=== PATIENT | female | born 1985 | race African-American/Black ===

== ENCOUNTER 2019-02-15 07:00 | Inpatient (IN) | payer OTHER ==
[2019-02-15 08:01] VITALS: BMI 40.6
[2019-02-15] MEDS ORDERED: CITRIC ACID/SODIUM CITRATE 30 ML UNIT-DOSE CUP PO ONE (08:41)
--- NOTE | 2019-02-15 08:41 | HP ---
Past Medical History - Primary Care Physician PCP:: Ramya Mendoza - Admission Chief Complaint: 33yo P2 @ 39.2wks, prior c/section x 2, for repeat c/section. She has no complains, no VB, no LOF, no ctx, + FM History of Present Illness: 1. Hyperemesis - improved without meds 2. 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 Weeks Gestation by Dates: 39.2 ...EDC by Dates: 02/20/19 ...EDC by Sono: 02/20/19 - Past Surgical History Past Surgical History: Yes: (x2) Hx Myomectomy: No Hx Transabdominal Cerclage: No Additional Surgical History: 10/23/16 - Abdominoplasty, liposuction, butt lift - Smoking History Smoking history: Never smoked Have you smoked in the past 12 months: No - Alcohol/Substance Use Hx Alcohol Use: No Home Medications - Allergies Allergies/Adverse Reactions: Allergies Allergy/AdvReac Type Severity Reaction Status Date / Time No Known Allergies Allergy Verified 02/15/19 07:49 - Home Medications Home Medications: Ambulatory Orders Vitamins (Sjr) - 1 tab PO DAILY 02/15/19 Family Disease History - Family Disease History Family Disease History: Other: Mother (Lupus) Review of Systems - Review of Systems Constitutional: reports: No Symptoms Eyes: reports: No Symptoms HENT: reports: No Symptoms Neck: reports: No Symptoms Cardiovascular: reports: No Symptoms Respiratory: reports: No Symptoms Gastrointestinal: reports: No Symptoms Genitourinary: reports: No Symptoms Breasts: reports: No Symptoms Reported Musculoskeletal: reports: No Symptoms Integumentary: reports: No Symptoms Neurological: reports: No Symptoms Endocrine: reports: No Symptoms Hematology/Lymphatic: reports: No Symptoms Psychiatric: reports: No Symptoms Pain Intensity: 0 Physical Exam - Maternity Vital Signs: Vital Signs Temperature 98.1 F 02/15/19 07:20 Pulse Rate 104 H 02/15/19 07:20 Respiratory Rate 20 02/15/19 07:20 Blood Pressure 117/78 02/15/19 07:20 O2 Sat by Pulse Oximetry (%) Constitutional: Yes: Well Nourished, No Distress, Calm Eyes: Yes: WNL, Conjunctiva Clear HENT: Yes: WNL, Atraumatic, Normocephalic Neck: Yes: WNL, Supple, Trachea Midline Cardiovascular: Yes: WNL, Regular Rate and Rhythm Lungs: Clear to auscultation Breast(s): Yes: WNL - Abdominal Exam/OB Fundal Height: 36 Number of Fetuses: Single Presentation: Vertex Contractions: No Monitor Mode: External Heart Rate (range): 140 Heart Rate Location: Midline Category: I Accelerations: Uniform Decelerations: None - Vaginal Exam/OB Vaginal Bleediing: No Speculum Exam: No Dilatation (cm): deferr Amniotic Membrane Status: Intact Presentation: Vertex/Position - Physical Exam Musculoskeletal: Yes: WNL Extremities: Yes: WNL Edema: Yes Edema: LUE: 1+, LLE: 1+ Integumentary: Yes: WNL Deep Tendon Reflex Grade: Normal +2 ...Motor Strength: WNL Psychiatric: Yes: WNL, Alert, Oriented - Labs Lab Results: Opos/NR/RI/HIV neg/HepB neg/GCT 106 Assessment/Plan 33yo P2 with at EGA 39 3/7wks admitted for repeat C/S. We discussed the risks and benefits of C/S at length, including but not limited to scarring, pain, bleeding, infection, injury to underlying organs and structures, need for additional surgery to repair/treat any problems or complications, complications/injuries, etc. The pt verbalized her understanding and requested to proceed with surgery. The pt is aware that all surgeries have risks and no guarantees can be provided.
[2019-02-15] MEDS ORDERED: ELECTROLYTE-148 SOLN 1,000 ML IV SCH (08:45)
[2019-02-15] MEDS ORDERED: CEFAZOLIN 2 GM/D5W 2 GM/50 ML ML IVPB ONE (09:00)
[2019-02-15] MEDS ORDERED: ceFAZolin 2 GRAM PREMIX BAG IVPB ONE (09:00)
[2019-02-15] MEDS ORDERED: morphine SULFATE/PF 0.5 MG/ML (2cc Syringe - QUVA) ONE (10:04)
[2019-02-15] MEDS ORDERED: ePHEDrine SULFATE 50 MG/1 ML AMPULE ONE (10:17)
[2019-02-15] MEDS ORDERED: OXYTOCIN 20 UNITS in 0.9% NS 20 UNIT/1,000 ML INFUS.BAG IV ONE ×2 (10:36→11:29)
[2019-02-15] MEDS ORDERED: ONDANSETRON 4 MG/2 ML VIAL IVPUSH PRN (11:59)
[2019-02-15] MEDS ORDERED: morphine SULFATE/PF 0.5 MG/ML (2cc Syringe - QUVA) EP ONE (11:59)
--- NOTE | 2019-02-15 12:00 | OP ---
Operative Note - Note: Operative Date: 02/15/19 Pre-Operative Diagnosis: 33yo P2 with prior c/section x 2 for repeat c/section Operation: Repeat c/section Findings: Uterus scared to right anterior abdominal wall Anterior low placenta at the level of uterine incision Post-Operative Diagnosis: Same as Pre-op Surgeon: Ramya Mendoza Special Ed Assistant: Jose Pina Anesthesiologist/GUIDE DOG MOBILITY INSTRUCTOR: Cindy Howard MD Anesthesia: Spinal Specimens Removed: Placenta Estimated Blood Loss (mls): 500 Drains, Volume Out (mls): 150 Fluid Volume Replaced (mls): 1,700 Operative Report Dictated: Yes
--- NOTE | 2019-02-15 12:06 | PN ---
Delivery - Delivery Section: Repeat Type of Anesthesia: Spinal Episiotomy/Laceration: None EBL (cc): 500 Delivery, Single - Stages of Labor Date of Delivery: 02/15/19 Time of Delivery: 10:41 Date Placenta Delivered: 02/15/19 Time Placenta Delivered: :42 Placenta: Yes: Expressed - Condition of Infant Clay Dry Press Mixer Operator/Training Development Specialist Present: Yes Name: Saba Marcus Gender: Female Weight: 6 lb 2 oz Total Hours ROM (Hrs/Mins): 0hrs 2min - 1 Minute Total Score: 9 5 Minutes Total Score: 9 - Sabine Feeding Plan Initial Plan: Exclusive throughout hospitalization Benefits of Exclusively reinforced: Yes Remarks - Remarks Remarks: cord around both ankles Placenta at the level of uterine incision, anterior, low lying head delivered atraumatically
[2019-02-15] MEDS ORDERED: METHYLERGONOVINE MALEATE 0.2 MG/1 ML AMP IM PRN (12:07)
[2019-02-15] MEDS ORDERED: IBUPROFEN 800 MG/8 ML IJ IVPB PRN (12:35)
[2019-02-15] MEDS ORDERED: IBUPROFEN 800 MG/8 ML IJ IVPB ONE (12:39)
[2019-02-15] MEDS ORDERED: IBUPROFEN 800 MG/8 ML IJ IVPB SCH ×2 (12:45→17:17)
[2019-02-15] MEDS: IBUPROFEN 800 MG/8 ML IJ IVPB SCH (19:46)
[2019-02-16] MEDS: CEFAZOLIN 1 GM/D5W 1 GM/50 ML BAG IVPB SCH ×3 (01:27→17:01)
[2019-02-16] MEDS: IBUPROFEN 800 MG/8 ML IJ IVPB SCH (03:37)
[2019-02-16 07:40] LABS: BASO % 0.1 % (0-2.0); EOS % 0.6 % (0-4.5); HEMATOCRIT 29.1 % (32.4-45.2); HEMOGLOBIN 9.4 GM/dL (10.7-15.3); LYMPH % 8.6 % (8-40); MCH 27.5 pg (25.7-33.7); MCHC 32.3 g/dl (32.0-36.0); MEAN CELL VOLUME 85.3 fl (80-96); MEAN PLT VOLUME 8.3 fl (7.5-11.1); MONO % 13.8 % (3.8-10.2); NEUT % 76.9 % (42.8-82.8); PLATELET COUNT 193 K/MM3 (134-434); RBC 3.41 M/mm3 (3.60-5.2); RDW 14.9 % (11.6-15.6); WHITE BLOOD COUNT 12.5 K/mm3 (4.0-10.0)
[2019-02-16] MEDS: ENOXAPARIN NA (PORCINE) 40 MG/0.4 ML DISP.SYRIN SQ SCH (09:05)
[2019-02-16] MEDS: PRENATAL VITAMINS W/ FOLIC ACID TABLET (FP) PO SCH (09:05)
--- NOTE | 2019-02-16 09:25 | PN ---
HC Provider Note Provider Note: Anesthesia Post op Pt s/p spinal for c/section Pt awake alert sitting up Pt tolerating po's w/o n/v Ambulating well, no urinary retention denies h/a, no back pain reports some itching that did not require medication VSS no apparent anesthesia complications Johnson Corona.
[2019-02-16] MEDS: oxyCODONE HCL 5 MG TABLET PO PRN (10:48)
[2019-02-16] MEDS: ACETAMINOPHEN 325 MG TABLET (FP) PO PRN ×3 (10:49→21:15)
[2019-02-16] MEDS: SIMETHICONE 80 MG TAB.CHEW (FP) PO PRN ×3 (10:52→21:14)
[2019-02-16] MEDS ORDERED: BISACODYL 10 MG SUPP.RECT RC PRN (12:09)
[2019-02-16] MEDS: IBUPROFEN 600 MG TABLET (FP) PO PRN ×2 (15:32→21:14)
--- NOTE | 2019-02-16 16:41 | PN ---
Post Progress Note - Subjective Subjective: Patient without acute complaints. Reports tolerating oral intake without nausea or vomiting. Ambulating without dizziness. Denies fevers or chills. Pain well controlled with oral pain medication. Pumping/breast feeding without issue. Passing flatus, no BM. Type of Delivery: Repeat C/S Vital Signs: Vital Signs Temperature 98 F 02/16/19 07:30 Pulse Rate 93 H 02/16/19 07:30 Respiratory Rate 18 02/16/19 12:00 Blood Pressure 129/76 02/16/19 07:30 O2 Sat by Pulse Oximetry (%) 99 02/15/19 12:45 Breast Exam: Yes: Soft Uterus: Yes: Fundus Firm, Fundus below umbilicus Incision: Yes: Dressing dry and intact Abdomen/GI: Yes: Abdomen soft, Tolerating PO Lochia: Yes: Rubra Lochia, amount: Small Extremities: Yes: Calves non-tender Perineum: Yes: Intact Activity: Ambulating - Labs Labs: CBC WBC 12.5 K/mm3 (4.0-10.0) H 02/16/19 05:30 RBC 3.41 M/mm3 (3.60-5.2) L 02/16/19 05:30 Hgb 9.4 GM/dL (10.7-15.3) L 02/16/19 05:30 Hct 29.1 % (32.4-45.2) L 02/16/19 05:30 MCV 85.3 fl (80-96) 02/16/19 05:30 MCH 27.5 pg (25.7-33.7) 02/16/19 05:30 MCHC 32.3 g/dl (32.0-36.0) 02/16/19 05:30 RDW 14.9 % (11.6-15.6) 02/16/19 05:30 Plt Count 193 K/MM3 (134-434) 02/16/19 05:30 MPV 8.3 fl (7.5-11.1) 02/16/19 05:30 Absolute Neuts (auto) 9.6 K/mm3 (1.5-8.0) H 02/16/19 05:30 Neutrophils % 76.9 % (42.8-82.8) 02/16/19 05:30 Lymphocytes % 8.6 % (8-40) D 02/16/19 05:30 Monocytes % 13.8 % (3.8-10.2) H 02/16/19 05:30 Eosinophils % 0.6 % (0-4.5) 02/16/19 05:30 Basophils % 0.1 % (0-2.0) 02/16/19 05:30 Nucleated RBC % 0 % (0-0) 02/16/19 05:30 Assessment/Plan 26yo P1 s/p primary LT C/S, doing well stable, afebrile. care instructions reviewed. Continue routine postop care. Ambulation encouraged.
[2019-02-17] MEDS: IBUPROFEN 600 MG TABLET (FP) PO PRN ×3 (09:32→20:22)
[2019-02-17] MEDS: SIMETHICONE 80 MG TAB.CHEW (FP) PO PRN ×3 (09:32→20:22)
[2019-02-17] MEDS: ENOXAPARIN NA (PORCINE) 40 MG/0.4 ML DISP.SYRIN SQ SCH (09:32)
[2019-02-17] MEDS: PRENATAL VITAMINS W/ FOLIC ACID TABLET (FP) PO SCH (09:32)
[2019-02-17] MEDS: ACETAMINOPHEN 325 MG TABLET (FP) PO PRN (09:32)
[2019-02-17] MEDS: oxyCODONE HCL 5 MG TABLET PO PRN ×2 (12:34→20:23)
--- NOTE | 2019-02-17 15:17 | PATH ---
Surgical Pathology Report Patient Name: FARIDA LUNA Med. Rec. 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 Specimen(s) Received PLACENTA Clinical History x2 Tummy tuck and Liposuction 2017 Final Diagnosis PLACENTA, SECTION: 476 G THIRD TRIMESTER PLACENTA WITH TRIVASCULAR UMBILICAL CORD AND UNREMARKABLE PLACENTAL MEMBRANES. Electronically Signed Lillie Oconnell M.D. Gross Description The specimen is received fresh labeled placenta and is a 476 gram, 20 x 20 x 1.5 cm. placenta with attached membranes and umbilical cord. The attached membranes are clear and translucent and insert marginally. The umbilical cord measures 5 cm. in length and averages 1.5 cm. in diameter. The cord inserts eccentrically, 5 cm. to the nearest margin. No true knots or strictures are identified. Cut surface of the umbilical cord reveals 3 vessels. The surface is luque-blue with minimal fibrin deposition and appropriate caliber vessels. The maternal surface is red-brown with focal defects. Sectioning reveals red-brown, spongy parenchyma. No lesions are identified. Notereader sections are submitted in three cassettes as follows: 1- membrane rolls and umbilical cord; 2-3- full thickness sections of placenta. MLSZ/02/16/2019 sanml/02/16/2019
--- NOTE | 2019-02-17 17:27 | PN ---
Post Progress Note - Subjective Subjective: Patient without acute complaints. Reports tolerating oral intake without nausea or vomiting. Ambulating without dizziness. Denies fevers or chills. Pain well controlled with oral pain medication. without difficulty. Passing flatus. Type of Delivery: Repeat C/S Vital Signs: Vital Signs Temperature 98.6 F 02/17/19 09:00 Pulse Rate 111 H 02/17/19 09:00 Respiratory Rate 18 02/17/19 09:00 Blood Pressure 118/66 02/17/19 09:00 O2 Sat by Pulse Oximetry (%) 99 02/15/19 12:45 Breast Exam: Yes: Soft Uterus: Yes: Fundus Firm, Fundus below umbilicus Incision: Yes: Sutures intact. No: Redness, Oozing Abdomen/GI: Yes: Abdomen soft, Tender (mild incisional), Passing flatus, Tolerating PO. No: Abdominal Distention Lochia: Yes: Rubra Lochia, amount: Moderate Extremities: Yes: Calves non-tender, Edema (+1) Activity: Ambulating - Labs Labs: CBC WBC 12.5 K/mm3 (4.0-10.0) H 02/16/19 05:30 RBC 3.41 M/mm3 (3.60-5.2) L 02/16/19 05:30 Hgb 9.4 GM/dL (10.7-15.3) L 02/16/19 05:30 Hct 29.1 % (32.4-45.2) L 02/16/19 05:30 MCV 85.3 fl (80-96) 02/16/19 05:30 MCH 27.5 pg (25.7-33.7) 02/16/19 05:30 MCHC 32.3 g/dl (32.0-36.0) 02/16/19 05:30 RDW 14.9 % (11.6-15.6) 02/16/19 05:30 Plt Count 193 K/MM3 (134-434) 02/16/19 05:30 MPV 8.3 fl (7.5-11.1) 02/16/19 05:30 Absolute Neuts (auto) 9.6 K/mm3 (1.5-8.0) H 02/16/19 05:30 Neutrophils % 76.9 % (42.8-82.8) 02/16/19 05:30 Lymphocytes % 8.6 % (8-40) D 02/16/19 05:30 Monocytes % 13.8 % (3.8-10.2) H 02/16/19 05:30 Eosinophils % 0.6 % (0-4.5) 02/16/19 05:30 Basophils % 0.1 % (0-2.0) 02/16/19 05:30 Nucleated RBC % 0 % (0-0) 02/16/19 05:30 Assessment/Plan 33 yo POD # 2 s/p R CD, afebrile, mild anemia 1. Continue routine postoperative care. 2. Mild tachycardia, mild anemia noted. Will monitor VS 2. Encourage ambulation and incentive spirometer use 3. Continue oral pain medication 4. Anticipate discharge home postoperative day #3 or #4
[2019-02-18] MEDS: FERROUS SO4 325 MG TABLET (FP) PO SCH ×2 (09:01→18:04)
[2019-02-18] MEDS: IBUPROFEN 600 MG TABLET (FP) PO PRN ×3 (09:01→21:38)
[2019-02-18] MEDS: SIMETHICONE 80 MG TAB.CHEW (FP) PO PRN ×2 (09:01→21:38)
[2019-02-18] MEDS: oxyCODONE HCL 5 MG TABLET PO PRN (09:01)
[2019-02-18] MEDS: PRENATAL VITAMINS W/ FOLIC ACID TABLET (FP) PO SCH (09:01)
[2019-02-18] MEDS: ENOXAPARIN NA (PORCINE) 40 MG/0.4 ML DISP.SYRIN SQ SCH (09:02)
[2019-02-18 09:39] LABS: BASO % 0.3 % (0-2.0); EOS % 2.2 % (0-4.5); HEMOGLOBIN 9.2 GM/dL (10.7-15.3); LYMPH % 15.7 % (8-40); MCH 27.9 pg (25.7-33.7); MCHC 32.9 g/dl (32.0-36.0); MEAN CELL VOLUME 84.9 fl (80-96); MEAN PLT VOLUME 8.4 fl (7.5-11.1); MONO % 13.5 % (3.8-10.2); NEUT % 68.3 % (42.8-82.8); PLATELET COUNT 204 K/MM3 (134-434); RDW 14.9 % (11.6-15.6); WHITE BLOOD COUNT 7.7 K/mm3 (4.0-10.0)
[2019-02-18] MEDS: ACETAMINOPHEN 325 MG TABLET (FP) PO PRN ×2 (13:17→21:39)
--- NOTE | 2019-02-18 22:37 | PN ---
Progress Note (short form) - Note Progress Note: pod 3 s/p repeat c/s . has low abdominal cramps, passing gas, voids ok CBC, BMP 02/18/19 08:50 Last Vital Signs Temp Pulse Resp BP Pulse Ox 97.9 F 87 18 135/88 99 02/18/19 09:00 02/18/19 09:00 02/18/19 09:00 02/18/19 09:00 02/15/19 12:45 abdomen soft, no distension, no cva incision dry, clean no calf tenderness plan ambulate . pain management.
[2019-02-18 23:40] VITALS: TEMP 98.4
[2019-02-19] MEDS: ACETAMINOPHEN 325 MG TABLET (FP) PO PRN (08:18)
[2019-02-19] MEDS: SIMETHICONE 80 MG TAB.CHEW (FP) PO PRN (08:19)
[2019-02-19] MEDS: IBUPROFEN 600 MG TABLET (FP) PO PRN (08:19)
[2019-02-19] MEDS: FERROUS SO4 325 MG TABLET (FP) PO SCH (08:19)
--- NOTE | 2019-02-19 08:28 | DS ---
Physical Exam-HOUSEKEEPING/LAUNDRY Vital Signs: Vital Signs Temperature 98.4 F 02/18/19 22:00 Pulse Rate 71 02/18/19 22:00 Respiratory Rate 18 02/18/19 22:00 Blood Pressure 130/78 02/18/19 22:00 O2 Sat by Pulse Oximetry (%) 99 02/15/19 12:45 Constitutional: Yes: Well Nourished, No Distress, Calm Eyes: Yes: WNL, Conjunctiva Clear, EOM Intact HENT: Yes: WNL, Atraumatic, Normocephalic Neck: Yes: WNL, Supple, Trachea Midline Cardiovascular: Yes: WNL, Regular Rate and Rhythm Respiratory: Yes: WNL, Regular, CTA Bilaterally Gastrointestinal: Yes: WNL ...Rectal Exam: Yes: WNL Renal/: Yes: WNL ....Post : Yes: Uterus firm, Uterus non-tender, Slight lochia rubra Breast(s): Yes: WNL Musculoskeletal: Yes: WNL Extremities: Yes: WNL Edema: LLE: Trace, RLE: Trace Integumentary: Yes: WNL Wound/Incision: Yes: Clean/Dry, Well Approximated, Sutures Intact Neurological: Yes: WNL, Alert, Oriented ...Motor Strength: WNL Psychiatric: Yes: WNL, Alert, Oriented Labs: CBC, BMP 02/18/19 08:50 Delivery - Delivery Section: Repeat Type of Anesthesia: Spinal Episiotomy/Laceration: None EBL (cc): 500 Delivery, Single - Stages of Labor Date of Delivery: 02/15/19 Time of Delivery: 10:41 Time Placenta Delivered: 10:42 Placenta: Yes: Expressed - Condition of Maple Products Maker/Temperature Control Inspector Present: Yes Name: Saba Marcus Gender: Female Weight: 6 lb 2 oz Total Hours ROM (Hrs/Mins): 0hrs 2min - 1 Minute Total Score: 9 5 Minutes Total Score: 9 - Feeding Plan Initial Plan: Exclusive throughout hospitalization Benefits of Exclusively reinforced: Yes Discharge Summary Reason For Visit: C SECTION Procedures: Principal: repeat LST c/s Hospital Course: no complication Condition: Good - Instructions Diet, Activity, Other Instructions: regular diet, no intercourse , follow up office 1 week, if fever, pain, heavy vaginal bleeding call Referrals: Ramya Mendoza MD [Staff Physician] - Disposition: HOME - Home Medications Comprehensive Discharge Medication List: Ambulatory Orders Vitamins (Sjr) - 1 tab PO DAILY 02/15/19 Ibuprofen [Motrin -] 600 mg PO QID #28 tablet 02/18/19 Ibuprofen [Motrin -] 600 mg PO TID #90 tablet 02/18/19
[2019-02-19 09:40] VITALS: BP 129/63; PULSE 74
[2019-02-19] MEDS: PRENATAL VITAMINS W/ FOLIC ACID TABLET (FP) PO SCH (10:21)
[2019-02-19] MEDS: ENOXAPARIN NA (PORCINE) 40 MG/0.4 ML DISP.SYRIN SQ SCH (10:21)
--- NOTE | 2019-02-20 21:17 | OP ---
DATE OF OPERATION: 02/15/2019 PREOPERATIVE DIAGNOSIS: A 33-year-old, para 2, at 39 plus weeks, with history of prior section twice, presented for repeat section. FINDINGS: Uterus was hard at the right anterior abdominal wall, anterior low placenta at the level of uterine incision. POSTOPERATIVE DIAGNOSIS: A 33-year-old, para 2, at 39 plus weeks, with history of prior section twice, presented for repeat section. SURGEON: Ramya Mendoza MD MERCHANDISING ASSISTANT: Jose Pina MD ANESTHESIA: Cindy Howard MD: Spinal. DESCRIPTION OF THE OPERATIVE PROCEDURE: After ensuring informed consent, patient was brought to the operating room, where she was placed in dorsal supine position with left lateral tilt. Abdomen was prepped and draped in a sterile fashion. A Pfannenstiel skin incision was made 2 cm above pubic symphysis and extended to the level of fascia with Bovie cautery. Multiple sutures were encountered, likely from the prior abdominoplasty and needed to be removed upon entry. Fascia was incised in the midline and extended bilaterally with Bovie cautery. Muscle was split in the midline. The peritoneum was identified and immediately upon entry into the peritoneum, uterus was incised simultaneously with peritoneal incision, since abdominal wall was densely adherent to the anterior uterine wall. Placenta was visualized through the small cristian on the uterine incision. The peritoneum was dissected off the lower uterine segment. Bladder was brought down with [place], and uterine incision was further extended. Placenta was encountered right at the level of the incision. 's head was found to be inferior to the incision, was delivered atraumatically and cord was clamped and cut. Infant was handed to awaiting pediatricians. Placenta delivered intact without any difficulty. Uterus was cleated of clots and debris and repaired in 2 layers with 0 Biosyn. Excellent hemostasis was achieved. At that point, the uterus was found to be firm. Abdomen was cleared of clots and debris. Peritoneal incision was repaired, incorporating some of the muscle into the incision. The muscle was reapproximated as well. Fascia was repaired with 0 Vicryl. Skin was closed with subcuticular stitches with 2-0 Vicryl and subsequently with 4-0 V-Loc Biosyn. Patient tolerated procedure well. Sponge and instrument count was correct x2. Estimated blood loss was 500 mL. Urine drained was 150 mL. Patient received 1700 mL IV fluids and was brought stable to the recovery room. Marquis [id number]
== END 2019-02-19 14:00 | disposition home or self-care (01) | DRG 788 ==
LOC: JLDR 07:00 → J3W 13:00
PROVIDERS: ADMIT Obstetrics & Gynecology; ATTEND Obstetrics & Gynecology
PROC: 10D00Z1 Extraction of Products of Conception, Low, Open Approach (ICD-10-PCS; principal; 2019-02-15)
DX: O34.211 Maternal care for low transverse scar from previous cesarean delivery (principal); O69.89X0 Labor and delivery complicated by other cord complications, not applicable or unspecified; O99.02 Anemia complicating childbirth; D64.9 Anemia, unspecified; Z3A.39 39 weeks gestation of pregnancy; Z37.0 Single live birth
CPT/HCPCS: 36415; 36600; 82803; 85025; 88307-TC; 94010

== ENCOUNTER 2019-02-22 13:08 | Inpatient (IN) | payer OTHER ==
--- NOTE | 2019-02-22 13:12 | PDOC ---
Rapid Medical Evaluation Medical Evaluation: Allergies Allergy/AdvReac Type Severity Reaction Status Date / Time No Known Allergies Allergy Verified 02/15/19 07:49 I have performed a brief in-person evaluation of this patient. The patient presents with a chief complaint of: s/p last week; saw OB , Dr. Marsh today for site check and was noted for elevated BP; was sent to ED for eval for possible pre-eclampsia; has mild MAC; denies vomiting, blurred vision, cp; denies hx of HTN Pertinent physical exam findings: In NAD I have ordered the following: Labs The patient will proceed to the ED for further evaluation. 02/22/19 13:10
[2019-02-22] MEDS ORDERED: LABETALOL HCL 5 MG/1 ML (100MG/20 ML VIAL) IVPUSH ONE (13:57)
[2019-02-22] MEDS ORDERED: MAGNESIUM 4GM/H20 - 4 GM/100 ML IVPB IVPB SCH (14:00)
[2019-02-22] MEDS ORDERED: MAGNESIUM SULF 50% (8.12 MEQ/2 ML-1 GM VIAL) ONE (14:01)
[2019-02-22 14:07] LABS: BASO % 0.4 % (0-2.0); EOS % 3.8 % (0-4.5); HEMATOCRIT 30.3 % (32.4-45.2); HEMOGLOBIN 9.9 GM/dL (10.7-15.3); LYMPH % 21.8 % (8-40); MCH 27.5 pg (25.7-33.7); MCHC 32.7 g/dl (32.0-36.0); MEAN CELL VOLUME 84.1 fl (80-96); MEAN PLT VOLUME 8.1 fl (7.5-11.1); MONO % 13.9 % (3.8-10.2); NEUT % 60.1 % (42.8-82.8); PLATELET COUNT 259 K/MM3 (134-434); RDW 14.4 % (11.6-15.6)
[2019-02-22] MEDS ORDERED: LABETALOL HCL 5 MG/1 ML (200MG/40ML VIAL) IVPB ONE (14:22)
[2019-02-22 14:24] LABS: EPI CELLS 9.9 /HPF (0-5/HPF); HYALINE CASTS 3 /lpf (0-8); URINE APPEARANCE CLOUDY; URINE BACTERIA 213.6 /hpf (NEGATIVE); URINE BILIRUBIN NEGATIVE (NEGATIVE); URINE COLOR YELLOW; URINE GLUCOSE (UA) NEGATIVE (NEGATIVE); URINE KETONE NEGATIVE (NEGATIVE); URINE LEUK ESTERASE TRACE (NEGATIVE); URINE NITRITE NEGATIVE (NEGATIVE); URINE PROTEIN 1+ (NEGATIVE); URINE RBC 5 /hpf (0-4); URINE UROBILINOGEN 0.2 mg/dL (0.2-1.0); URINE WBC 16 /hpf (0-5)
--- NOTE | 2019-02-22 14:36 | PDOC ---
History of Present Illness - General Chief Complaint: Blood Pressure Problem Stated Complaint: HTN Time Seen by Provider: 02/22/19 13:09 - History of Present Illness Initial Comments: 02/22/19 14:25 89F A3 s/p 7 days ago with h/o hyperproteinuria of , sent by OBGYN for post- hypertension, worried she might have preeclampsia. Patient reports that she hasn't been feeling well for the past 3 days with generalized swelling of the feet, legs arms and face. Wasn't treated for hyperproteinuria as her BP was perfectly normal Denies fever, chills, abdominal pain or vaginal discharge or dysuria. Past History - Past Medical History Allergies/Adverse Reactions: Allergies Allergy/AdvReac Type Severity Reaction Status Date / Time No Known Allergies Allergy Verified 02/22/19 13:34 Home Medications: Ambulatory Orders Vitamins (Sjr) - 1 tab PO DAILY 02/15/19 Ibuprofen [Motrin -] 600 mg PO QID #28 tablet 02/18/19 Ibuprofen [Motrin -] 600 mg PO TID #90 tablet 02/18/19 Asthma: No Cancer: No Cardiac Disorders: No COPD: No Diabetes: No HTN: No Seizures: No Thyroid Disease: No - Suicide/Smoking/Psychosocial Hx Smoking History: Never smoked Have you smoked in the past 12 months: No Information on smoking cessation initiated: No Hx Alcohol Use: No Drug/Substance Use Hx: No Hx Substance Use Treatment: No Review of Systems - Review of Systems Able to Perform ROS?: Yes Is the patient limited Greenlandic proficient: No Constitutional: No: Symptoms Reported HEENTM: No: Symptoms Reported Respiratory: No: Symptoms reported Cardiac (ROS): No: Symptoms Reported ABD/GI: No: Symptoms Reported : No: Symptoms Reported Musculoskeletal: No: Symptoms Reported Integumentary: No: Symptoms Reported Neurological: No: Symptoms reported All Other Systems: Reviewed and Negative *Physical Exam - Vital Signs Last Vital Signs Temp Pulse Resp BP Pulse Ox 98.4 F 69 16 163/97 98 02/22/19 14:10 02/22/19 14:10 02/22/19 14:10 02/22/19 14:10 02/22/19 14:10 - Physical Exam General Appearance: Yes: Nourished, Appropriately Dressed. No: Apparent Distress HEENT: positive: EOMI, ADRIAN, Normal ENT Inspection Respiratory/Chest: positive: Lungs Clear, Normal Breath Sounds. negative: Chest Tender, Respiratory Distress Cardiovascular: positive: Regular Rhythm, Regular Rate, S1, S2 Gastrointestinal/Abdominal: positive: Normal Bowel Sounds, Tender (mildly, over scar), Flat, Soft Musculoskeletal: positive: Normal Inspection. negative: CVA Tenderness Extremity: positive: Normal Capillary Refill, Normal Inspection, Normal Range of Motion, Other (anansarca) Integumentary: positive: Normal Color, Dry, Warm Neurologic: positive: Fully Oriented, Alert, Normal Mood/Affect, Normal Response , Motor Strength 10/10 ED Treatment Course - LABORATORY CBC & Chemistry Diagram: 02/22/19 13:08 02/22/19 13:08 - ADDITIONAL ORDERS Additional order review: Laboratory Results 02/22/19 02/22/19 13:08 13:08 WBC 7.0 RBC 3.60 Hgb 9.9 L Hct 30.3 L MCV 84.1 MCH 27.5 MCHC 32.7 RDW 14.4 Plt Count 259 D MPV 8.1 Absolute Neuts (auto) 4.2 Neutrophils % 60.1 Lymphocytes % 21.8 D Monocytes % 13.9 H Eosinophils % 3.8 Basophils % 0.4 Nucleated RBC % 0 Urine Color Yellow Urine Appearance Cloudy Urine pH 6.0 Ur Specific [place] 1.012 Urine Protein 1+ H Urine Glucose (UA) Negative Urine Ketones Negative Urine Blood 3+ H Urine Nitrite Negative Urine Bilirubin Negative Urine Urobilinogen 0.2 Ur Leukocyte Esterase Trace Urine WBC (Auto) 16 Urine RBC (Auto) 5 Urine Casts (Auto) 3 U Epithel Cells (Auto) 9.9 Urine Bacteria (Auto) 213.6 02/22/19 13:08 RBC 3.60 MCV 84.1 MCHC 32.7 RDW 14.4 MPV 8.1 Neutrophils % 60.1 Lymphocytes % 21.8 D Monocytes % 13.9 H Eosinophils % 3.8 Basophils % 0.4 - Medications Given in the ED: ED Medications Discontinued Medications Generic Name Dose Route Start Last Admin Trade Name Freq PRN Reason Stop Dose Admin Labetalol HCl 10 mg 02/22/19 13:57 02/22/19 14:23 Normodyne Injection - IVPUSH 02/22/19 13:58 10 mg ONCE ONE Administration Medical Decision Making - Medical Decision Making 02/22/19 14:41 89F A3 s/p 7 days ago with h/o hyperproteinuria of , sent by OBGYN for post- hypertension, worried she might have preeclampsia. PAtient's pressure is elevated + anansarca. Suspecting preeclampsia. Will get labs and ua an. Spoke to Dr. Marsh with concurs with starting the patient on labetalol and magnesium. 02/22/19 16:[address] Marsh to ICU *DC/Admit/Observation/Transfer Diagnosis at time of Disposition: Preeclampsia in period - Discharge Dispostion Decision to Admit order: Yes - Referrals - Patient Instructions - Post Discharge Activity
[2019-02-22 14:37] LABS: ALBUMIN 2.8 g/dl (3.4-5.0); BILIRUBIN,TOTAL 0.4 mg/dL (0.2-1); BLOOD UREA NITROGEN 17.2 mg/dL (7-18); CALCIUM 9.1 mg/dL (8.5-10.1); CREATININE 0.9 mg/dL (0.55-1.3); POTASSIUM 4.1 mmol/L (3.5-5.1); TOT PROT 5.7 g/dl (6.4-8.2)
--- NOTE | 2019-02-22 14:41 | PDOC ---
Attending Attestation - Resident Resident Name: Reynold Davis - HPI HPI: 02/22/19 15:24 pt presents to the ED after sent in by Dr. Marsh for elevated blood pressure. Patient is one week post and had proteinuria during the but not elevated BP. complains of mild headache. Denies nausea, vomiting, visual changes, fever, or abdominal pain that is different from pain that she's had with prior C sections. - Physicial Exam PE: 02/22/19 15:30 Agree with resident exam. Patient is well appearing in the ED and in no acute distress. Lungs are clear. Heart: regular rate and rhythm. Abdomen: soft, non tender, non distended. Ext: trace edema to mid calf. Patient reports subjective edema of her face and hands. - Medical Decision Making 02/22/19 15:33 Pt presents to the ED complaining of hypertension with subjective diffuse swelling and mild headache. BP 180/[address] Marsh's office with no prior history of HTN. Will check labs, start magnesium and admit to Dr. Marsh' s service.
[2019-02-22 14:57] LABS: INR 1.01 (0.83-1.09); PROTHROMBIN TIME (PATIENT) 11.9 SEC (9.7-13.0)
--- NOTE | 2019-02-22 15:36 | CONSULT ---
Consultation: REQUESTING PROVIDER: CONSULT REQUEST: We have been asked to medically evaluate this patient for ICU care. HISTORY OF PRESENT ILLNESS: Patient is a 33F (C/S x 3, initial C/S secondary to failure to progress) who was sent to the ED by her OBGYN due to fear of pre-eclampsia. Patient gave one week ago and found to have a high blood pressure at her follow up appointment with her OBGYN. Patient had history of proteinuria during her last , but no history of HTN. Denies headache before arriving to ED, endorses mild posterior headache. Denies chest pain. Endorses some shortness of breath but denies cough. Endorses chronic pain in her mid back. Denies abdominal pain, fevers, chills, nausea, vomiting. Denies vision changes. Patient does complain of increased swelling to her arms and legs during the period. REVIEW OF SYSTEMS: GENERAL/CONSTITUTIONAL: No fever or chills. No weakness. HEAD, EYES, EARS, NOSE AND THROAT: No change in vision. No sore throat. CARDIOVASCULAR: No chest pain +shortness of breath RESPIRATORY: No cough, wheezing, or hemoptysis. GASTROINTESTINAL: No nausea, vomiting, diarrhea or constipation. GENITOURINARY: No dysuria, frequency, or change in urination. MUSCULOSKELETAL: No joint or muscle swelling or pain. No neck pain +back pain. SKIN: No rash NEUROLOGIC: No headache, vertigo, loss of consciousness, or change in strength/ sensation. ENDOCRINE: No increased thirst. No abnormal weight change HEMATOLOGIC/LYMPHATIC: No anemia, easy bleeding, or history of blood clots. ALLERGIC/IMMUNOLOGIC: No hives or skin allergy. PHYSICAL EXAMINATION Vital Signs - 24 hr 02/22/19 02/22/19 13:20 14:10 Temperature 98.2 F 98.4 F Pulse Rate 66 Pulse Rate [ 69 Left Apical] Respiratory 16 16 Rate Blood Pressure 188/100 H Blood Pressure 163/97 [Left Arm] O2 Sat by Pulse 100 98 Oximetry (%) GENERAL: Awake, alert, and fully oriented, in no acute distress HEAD: No signs of trauma, normocephalic, atraumatic EYES: PERRLA, EOMI, sclera anicteric, conjunctiva clear ENT: Auricles normal inspection, hearing grossly normal, nares patent, oropharynx clear without exudates. Moist mucosa NECK: Normal ROM, supple, no lymphadenopathy, JVD, or masses LUNGS: No distress, speaks full sentences, clear to auscultation bilaterally HEART: Regular rate and rhythm, normal S1 and S2, no murmurs, rubs or gallops, peripheral pulses normal and equal bilaterally. ABDOMEN: Soft, nontender, normoactive bowel sounds. No guarding, no rebound. No masses EXTREMITIES: Normal inspection, Normal range of motion, 2+ pitting edema bilaterally. No clubbing or cyanosis. NEUROLOGICAL: Cranial nerves II through XII grossly intact. Normal speech, no focal sensorimotor deficits SKIN: Warm, Dry, normal turgor, no rashes or lesions noted. Laboratory Results - last 24 hr 02/22/19 02/22/19 02/22/19 13:08 13:08 13:08 WBC 7.0 RBC 3.60 Hgb 9.9 L Hct 30.3 L MCV 84.1 MCH 27.5 MCHC 32.7 RDW 14.4 Plt Count 259 D MPV 8.1 Absolute Neuts (auto) 4.2 Neutrophils % 60.1 Lymphocytes % 21.8 D Monocytes % 13.9 H Eosinophils % 3.8 Basophils % 0.4 Nucleated RBC % 0 PT with INR INR PTT (Actin FS) Fibrinogen Sodium 142 Potassium 4.1 Chloride 108 H Carbon Dioxide 28 Anion Gap 5 L BUN 17.2 Creatinine 0.9 Est GFR (CKD-EPI)AfAm 96.69 Est GFR (CKD-EPI)NonAf 83.42 Random Glucose 78 Calcium 9.1 Total Bilirubin 0.4 AST 40 H ALT 75 H Alkaline Phosphatase 78 Total Protein 5.7 L Albumin 2.8 L Urine Color Yellow Urine Appearance Cloudy Urine pH 6.0 Ur Specific [place] 1.012 Urine Protein 1+ H Urine Glucose (UA) Negative Urine Ketones Negative Urine Blood 3+ H Urine Nitrite Negative Urine Bilirubin Negative Urine Urobilinogen 0.2 Ur Leukocyte Esterase Trace Urine WBC (Auto) 16 Urine RBC (Auto) 5 Urine Casts (Auto) 3 U Epithel Cells (Auto) 9.9 Urine Bacteria (Auto) 213.6 02/22/19 02/22/19 02/22/19 13:08 13:08 13:08 WBC RBC Hgb Hct MCV MCH MCHC RDW Plt Count MPV Absolute Neuts (auto) Neutrophils % Lymphocytes % Monocytes % Eosinophils % Basophils % Nucleated RBC % PT with INR 11.90 INR 1.01 PTT (Actin FS) 31.8 Fibrinogen 234.0 L Sodium Potassium Chloride Carbon Dioxide Anion Gap BUN Creatinine Est GFR (CKD-EPI)AfAm Est GFR (CKD-EPI)NonAf Random Glucose Calcium Total Bilirubin AST ALT Alkaline Phosphatase Total Protein Albumin Urine Color Urine Appearance Urine pH Ur Specific [place] Urine Protein Urine Glucose (UA) Urine Ketones Urine Blood Urine Nitrite Urine Bilirubin Urine Urobilinogen Ur Leukocyte Esterase Urine WBC (Auto) Urine RBC (Auto) Urine Casts (Auto) U Epithel Cells (Auto) Urine Bacteria (Auto) Active Medications Generic Name Dose Route Start Last Admin Trade Name Freq PRN Reason Stop Dose Admin Magnesium Sulfate 4 gm in 100 mls @ 200 mls/hr 02/22/19 14:00 02/22/19 14:19 Magnesium 4gm/H20 - IVPB 02/22/19 23:59 Not Given ASDIR MARIAMA Magnesium Sulfate 20 gm in 500 mls @ 50 mls/hr 02/22/19 14:00 Magnesium Sulfate 20gm/500ml - IVPB 02/23/19 23:59 ASDIR MARIAMA ASSESSMENT/PLAN: Patient is 33F with history of protein in with pre-eclampsia. CV #Pre-eclampsia BP goal 120-150 systolic over 70-90 diastolic Mg drip, target 4-8mg Labetalol PRN IV Push Tele monitoring for spO2 as mg is respiratory depressant CBC in AM Neuro Neurochecks Q2H Tylenol PRN for pain FEN/GI Mg levels per OBGYN CMP in AM Full Diet Dispo: ICU monitoring Case d/w Dr Marsh Visit type - Emergency Visit Emergency Visit: Yes ED Registration Date: 02/22/19 Care time: The patient presented to the Emergency Department on the above date and was hospitalized for further evaluation of their emergent condition. - New Patient This patient is new to me today: Yes Date on this admission: 02/22/19 - Critical Care Critical Care patient: Yes Total Critical Care Time (in minutes): 40 Critical Care Statement: The care of this patient involved high complexity decision making to prevent further life threatening deterioration of the patient 's condition and/or to evaluate & treat vital organ system(s) failure or risk of failure. ATTENDING PHYSICIAN STATEMENT I saw and evaluated the patient. I reviewed the resident's note and discussed the case with the resident. I agree with the resident's findings and plan as documented. SUBJECTIVE: OBJECTIVE: ASSESSMENT AND PLAN:
[2019-02-22] MEDS: MAGNESIUM SULFATE 20GM/500ML - 20 GM/500 ML INFUS.BAG IVPB SCH (16:04)
[2019-02-22 17:52] LABS: MAGNESIUM 1.7 mg/dL (1.8-2.4); URIC ACID 4.5 mg/dL (2.6-7.2)
--- NOTE | 2019-02-22 20:59 | CON.OBG ---
Consult Reason for Consultation:: Severe Pre-eclampsia - History of Present Illness Chief Complaint: Pt is s/p repeat delivery on 02/15/2019 who presented to the office with headache and BP 180/95, in the setting of generalized edema. She was dx'd with sever pre-eclampsia and referred to ER. 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) Cardio/Vascular: No: AFIB, Aneurysm, Aortic Insufficiency, Aortic Stenosis, CAD , CHF, Deep Vein Thrombosis, HTN, Hyperlipdemia, ME, Mitral Insufficiency, Mitral Stenosis, Murmur, Pulmonary Hypertension, Other Pulmonary: No: Asthma, Bronchitis, Cancer, COPD, O2 Dependent, Pneumonia, Previously Intubated, Pulmonary Embolus, Pulmonary Fibrosis, Sleep Apnea, Other Gastrointestinal: No: Ascites, Cancer, Constipation, Crohn's Disease, Diverticulitis, Diverticulosis, Esophageal Varices, Gastritis, GERD, GI Bleed, Hemorrhoids, Hiatal Hernia, Inflamatory Bowel Disease, Irritable Bowel Disease, Pancreatitis, Peptic Ulcer Disease, Ulcerative Colitis, Other Hepatobiliary: No: Cirrhosis, Cholelithiasis, Cholecystitis, Choledocholithiasis , Hepatitis A, Hepatitis B, Hepatitis C, Other Renal/: No: Renal Failure, Renal Inusuff, BPH, Cancer, Hematuria, Hemodialysis , Neurogenic Bladder, Renal Calculi, UTI, Other Reproductive: No: Ectopic , Endometriosis, Fibroids, PID, Polycystic Ovary Syndrome, Postmenopausal, Other ...: No ...Para: 3 (C/S x 3) Heme/Onc: No: Anemia, B12 Deficiency, Bleeding Disorder, Cancer, Current Chemotherapy, Current Radiation Therapy, Hemochromatosis, Hypercoaguable State, Myeloproliferative Synd, Sickle Cell Disease, Sickle Cell Trait, Thrombocytopenia, Other Infectious Disease: No: AIDS, C-Diff, Herpes Zoster, HIV, MRSA, STD's, Tuberculosis, VREF, Other Psych: No: Addictions, Anxiety, Bipolar, Depression, Panic, Psychosis, Schizophrenia, Other Musculoskeletal: No: Bursitis, Chronic low back pain, Hemiparesis, Hemiplegia, Osteoarthritis, Paraplegia, Other Rheumatology: No: Fibromyalgia, Gout, Lupus, Rheumatoid Arthritis, Sarcoidosis, Vasculitis, Other ENT: No: Allergic Rhinitis, Sinusitis, Other Endocrine: No: [place]'s Disease, Wily's Disease, Diabetes Insipidus, Diabetes Mellitus, Hyperparathyroidism, Hyperthyroidism, Hypothyroidism, Osteopenia, SIADH, Other Dermatology: No: Basal Cell, Cellulitis, Eczema, Melanoma, Psoriasis, Squamous Cell, Other - Past Surgical History Past Surgical History: Yes: (x 3) Additional Surgical History: Abdominoplasty, liposuction - Alcohol/Substance Use Hx Alcohol Use: No History of Substance Use: reports: None - Smoking History Smoking history: Never smoked Have you smoked in the past 12 months: No - Social History Usual Living Arrangement: With Spouse ADL: Independent Place of : [facility] History of Recent Travel: No Home Medications - Allergies Allergies/Adverse Reactions: Allergies Allergy/AdvReac Type Severity Reaction Status Date / Time No Known Allergies Allergy Verified 02/22/19 13:34 - Home Medications Home Medications: Ambulatory Orders Vitamins (Sjr) - 1 tab PO DAILY 02/15/19 Ibuprofen [Motrin -] 600 mg PO QID #28 tablet 02/18/19 Ibuprofen [Motrin -] 600 mg PO TID #90 tablet 02/18/19 Family Disease History - Family Disease History Family Disease History: Heart Disease: Father, Other: Mother (Lupus) Review of Systems - Review of Systems Constitutional: reports: No Symptoms Eyes: reports: No Symptoms HENT: reports: No Symptoms Neck: reports: No Symptoms Cardiovascular: reports: No Symptoms Respiratory: reports: No Symptoms Gastrointestinal: reports: No Symptoms Genitourinary: reports: Vaginal Bleeding Breasts: reports: No Symptoms Reported Musculoskeletal: reports: No Symptoms Integumentary: reports: No Symptoms Neurological: reports: Headache Endocrine: reports: No Symptoms Hematology/Lymphatic: reports: No Symptoms Psychiatric: reports: No Symptoms 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 Vital Signs: Vital Signs Temperature 98.4 F 02/22/19 14:10 Pulse Rate 78 02/22/19 19:10 Respiratory Rate 17 02/22/19 19:10 Blood Pressure 156/89 02/22/19 19:10 O2 Sat by Pulse Oximetry (%) 100 02/22/19 19:10 Constitutional: Yes: No Distress, Calm, Obese Eyes: Yes: WNL, Conjunctiva Clear, EOM Intact HENT: Yes: WNL, Atraumatic, Normocephalic Neck: Yes: WNL Cardiovascular: Yes: WNL, Regular Rate and Rhythm Gastrointestinal: Yes: Normal Bowel Sounds, Soft, Abdomen, Obese ...Rectal Exam: Yes: Deferred Renal/: Yes: Vaginal Bleeding External Genitalia: Yes: Normal Internal Exam Deferred: Yes ....Post : Yes: Uterus firm, Uterus non-tender, Slight lochia serosa Musculoskeletal: Yes: WNL Extremities: Yes: WNL Edema: Yes Edema: LUE: 1+, RUE: 1+, LLE: 1+, RLE: 1+ Integumentary: Yes: WNL Wound/Incision: Yes: Clean/Dry, Well Approximated, Open to air Neurological: Yes: WNL, Alert, Oriented ...Motor Strength: WNL Psychiatric: Yes: WNL, Alert, Oriented Labs: CBC, BMP 02/22/19 13:08 02/22/19 13:08 Problem List - Problems (1) Preeclampsia in period Assessment/Plan: Pt is s/p repeat delivery on 02/15/2019 who presented to the office with headache and BP 180/95, in the setting of generalized edema. She was dx'd with severe pre-eclampsia and referred to ER. In ER she is noted to have persistently elevated BP and mildly elevated LFT. Suspect HELLP- mild. 1. Pt will be admitted to ICU for BP control. 2. Magnesium Sulfate infusion for at least 24hrs. Bolus Magnesium 4 gm x 1, followed by 2 gm/hr infusion. The target level 4-8 mg/dL. Adjust rate as needed. Monitor for toxicity and follow Magnesium levels at 4hrs after bolus or rate change, then every 6 hrs. 3. Repeat CBC and CMP in am 4. monitor urine output closely. 5. Pt has breast pump in her room and can pump prn. 6. DVT prophylaxis w/Lovenox Code(s): O14.95 - UNSPECIFIED PRE-ECLAMPSIA, COMPLICATING THE PUERPERIUM
[2019-02-22] MEDS: ACETAMINOPHEN 1000 MG/100 ML VIAL (NON FORMULARY) IVPB PRN (22:00)
[2019-02-22] MEDS ORDERED: INSULIN (NOVOLOG) ASPART 100 UNITS/ML 10ML VIAL ONE (22:04)
--- NOTE | 2019-02-22 22:26 | PN ---
Teaching Attending Note Name of Resident: Ignacio Bergman ATTENDING PHYSICIAN STATEMENT I saw and evaluated the patient. I reviewed the resident's note and discussed the case with the resident. I agree with the resident's findings and plan as documented. SUBJECTIVE: Patient is a 33 year old woman - A3 - s/p 7 days ago with history of hyperproteinuria of , sent by her REFERRAL NURSE doctor for post- hypertension, worried she might have pre-eclampsia. Patient reports that she hasn't been feeling well for the past 3 days with generalized swelling of the feet, legs, arms and face. Wasn't treated for hyperproteinuria during as her BP was perfectly normal. Did not have hypertension during any of her prior pregnancies, but had proteinuria during her last . Has mild SOB, posterior headache and mid back pain that is chronic. Denies fever, chills, abdominal pain, nausea, vomiting, abnormal vaginal discharge, vision changes or dysuria. Has FH of HTN. Was started on IV MgSO4 drip and IV labetalol PRN. Patient is breast feeding. OBJECTIVE: Alert Vital Signs Period Temp Pulse Resp BP Sys/Lyons Pulse Ox Last 24 Hr 98.2 F-98.4 F 66-78 16-18 151-188/86-116 98-100 HEENT: No Jaundice, eye redness or discharge, PERRLA, EOMI. Normocephalic, atraumatic. External ears are normal and hearing is grossly intact. No nasal discharge. Neck: Supple, nontender. No palpable adenopathy or thyromegaly. No JVD Chest: Good effort. Clear to auscultation and percussion. Heart: Regular. No S3, rub or murmur Abdomen: Not distended, soft, nontender and no HSM. No rebound or guarding. Normal bowel sounds. Ext: Peripheral pulses intact. Pedal edema. Skin: Warm and dry. No petechiae, rash or ecchymosis. Neuro: Alert. Oriented x3. CN 2-12 grossly intact. Sensation grossly intact in all four extremities and DTR are symmetric. Psych: Appropriate mood and affect. Good insight. Current Medications Generic Name Dose Route Start Last Admin Trade Name Freq PRN Reason Stop Dose Admin Acetaminophen 1,000 mg 02/22/19 20:46 02/22/19 22:00 Ofirmev Injection - IVPB 1,000 mg Q6H PRN Administration HEADACHE Chlorhexidine Gluconate 1 applic 02/23/19 22:00 Hibiclens For Decolonization - TP HS MARIAMA Enoxaparin Sodium 40 mg 02/23/19 10:00 Lovenox - SQ DAILY MARIAMA Magnesium Sulfate 20 gm in 500 mls @ 50 mls/hr 02/22/19 14:00 02/22/19 16:04 Magnesium Sulfate 20gm/500ml - IVPB 02/23/19 23:59 50 mls/hr ASDIR MARIAMA Administration Labetalol HCl 10 mg 02/22/19 20:28 Normodyne Injection - IVPUSH Q2H PRN HYPERTENSION Labetalol HCl 100 mg 02/22/19 22:00 02/22/19 23:45 Normodyne - PO 100 mg BID MARIAMA Administration Mupirocin 1 applic 02/23/19 10:00 Bactroban Ointment (For Decolonization) - NS 02/28/19 09:59 BID [facility] Home Medications Medication Instructions Recorded Vitamins (Sjr) - 1 tab PO DAILY 02/15/19 Ibuprofen [Motrin -] 600 mg PO QID #28 tablet 02/18/19 Ibuprofen [Motrin -] 600 mg PO TID #90 tablet 02/18/19 Abnormal Lab Results 02/22/19 02/22/19 02/22/19 13:08 13:08 13:08 Hgb 9.9 L Hct 30.3 L Monocytes % 13.9 H Fibrinogen Chloride 108 H Anion Gap 5 L Magnesium 1.7 L AST 40 H ALT 75 H Total Protein 5.7 L Albumin 2.8 L Urine Protein 1+ H Urine Blood 3+ H 02/22/19 13:08 Hgb Hct Monocytes % Fibrinogen 234.0 L Chloride Anion Gap Magnesium AST ALT Total Protein Albumin Urine Protein Urine Blood ASSESSMENT AND PLAN: 1. Pre-eclampsia - Patient being treated with IV MgSO4 drip, Labetalol PO and IV. No acute abnormality on CXR and EKG shows NSR. LAE and no significant ST-T wave changes. Will monitor closely for signs of magnesium toxicity including monitoring respirations, BP, urine output, serum calcium and patella reflex. Will monitor LFTs and platelets. Will continue comprehensive care for all of patients comorbid conditions. Patient counseled on the injurious effects of uncontrolled hypertension. Nonpharmacologic measures to control hypertension like weight loss, salt restriction and exercise discussed. Importance of adherence to treatment regimen and attainment of normotension emphasized. 2. Hypoalbuminemia - Possibly due to combined effects of proteinuria, malnutrition and inflammation associated with comorbid chronic conditions. Will ensure adequate dietary protein intake and also consult test grader. 3. Anemia - Likely in part due to blood loss during surgery and nutritional anemia. Will do basic anemia work up including serial stool guaiacs, reticulocyte count and iron studies. If iron deficiency is confirmed would benefit from IV iron once stable. 4. Obesity Counseled on the risks associated with obesity. Will provide patient all the necessary assistance, counseling and positive reinforcement to facilitate weight loss. Consult test grader. 5. DVT prophylaxis - Heparin 5000u sq tid. 6. Advance directives - Full code
--- NOTE | 2019-02-22 23:22 | HP ---
CHIEF COMPLAINT: 1 week post , sent from OB due to BP of 188/100 PCP: Sonal Baron HISTORY OF PRESENT ILLNESS: This is a 33 year old female , 7 days post () with PMH significant for proteinuria in previous and prolactinoma in 2017. She was referred to [facility] by her OB due to suspected post pre-eclampsia after she was found to have a BP of 188/100. She endorses edema B/L in lower extremities, arms, and face. She states that she has had similar edema during her pregnancies, which usually resolves after she keeps her legs elevated. This time, however, the edema persists even when she elevates her legs. She also endorses an associated frontal headache which began a few hours ago, rated 6.5/ 10. She has also had mild SOB over the past week. She states that with the exception of proteinuria in the third trimester of her last , she has never had any complications during her pregnancies. She has no associated fevers, chills, changes in her vision, abdominal pain, dizziness, light headedness, chest pain, cough, palpitations, nausea, vomiting, diarrhea, constipation, dysuria, urgency, or hematuria. ER course was notable for: (1) Labetalol 10mg IV, MgSO4 4gm (2) BP 188/100 (3) H&H 9.9/30.3 Recent Travel: None PAST MEDICAL HISTORY: Prolactinoma in 2017 PAST SURGICAL HISTORY: 2017: Cosmetic abdominoplasty Social History: Smoking: denies Alcohol: occasional use Drugs: denies Family History: HTN: Father and sister Allergies No Known Allergies Allergy (Verified 02/22/19 13:34) HOME MEDICATIONS: Home Medications Medication Instructions Recorded Vitamins (Sjr) - 1 tab PO DAILY 02/15/19 Ibuprofen [Motrin -] 600 mg PO QID #28 tablet 02/18/19 Ibuprofen [Motrin -] 600 mg PO TID #90 tablet 02/18/19 REVIEW OF SYSTEMS CONSTITUTIONAL: Absent: fever, chills, diaphoresis, generalized weakness, malaise, loss of appetite, weight change HEENT: Absent: rhinorrhea, nasal congestion, throat pain, throat swelling, difficulty swallowing, mouth swelling, ear pain, eye pain, visual changes CARDIOVASCULAR: peripheral edema Absent: chest pain, syncope, palpitations, irregular heart rate, lightheadedness , peripheral edema RESPIRATORY: shortness of breath Absent: cough, shortness of breath, dyspnea with exertion, orthopnea, wheezing, stridor, hemoptysis GASTROINTESTINAL: Absent: abdominal pain, abdominal distension, nausea, vomiting, diarrhea, constipation, melena, hematochezia GENITOURINARY: Absent: dysuria, frequency, urgency, hesitancy, hematuria, flank pain, genital pain MUSCULOSKELETAL: Absent: myalgia, arthralgia, joint swelling, back pain, neck pain SKIN: Absent: rash, itching, pallor HEMATOLOGIC/IMMUNOLOGIC: Absent: easy bleeding, easy bruising, lymphadenopathy, frequent infections ENDOCRINE: Absent: unexplained weight gain, unexplained weight loss, heat intolerance, cold intolerance NEUROLOGIC: headache, Absent: headache, focal weakness or paresthesias, dizziness, unsteady gait, seizure, mental status changes, bladder or bowel incontinence PSYCHIATRIC: Absent: anxiety, depression, suicidal or homicidal ideation, hallucinations. PHYSICAL EXAMINATION Vital Signs - 24 hr 02/22/19 02/22/19 02/22/19 13:20 14:10 15:48 Temperature 98.2 F 98.4 F Pulse Rate 66 Pulse Rate [ 69 77 Left Apical] Pulse Rate [ Left Radial] Respiratory 16 16 18 Rate Blood Pressure 188/100 H Blood Pressure 163/97 151/116 H [Left Arm] O2 Sat by Pulse 100 98 100 Oximetry (%) 02/22/19 02/22/19 02/22/19 18:02 18:03 19:10 Temperature Pulse Rate 74 Pulse Rate [ Left Apical] Pulse Rate [ 78 Left Radial] Respiratory 16 17 Rate Blood Pressure Blood Pressure 157/86 156/89 [Left Arm] O2 Sat by Pulse 99 100 Oximetry (%) GENERAL: Awake, alert, and fully oriented, patient refused physical examination and stated that she wanted to rest HEAD: Normal with no signs of trauma. PSYCHIATRIC: Cooperative. Good eye contact. Appropriate mood and affect. Laboratory Results - last 24 hr 02/22/19 02/22/19 02/22/19 13:08 13:08 13:08 WBC 7.0 RBC 3.60 Hgb 9.9 L Hct 30.3 L MCV 84.1 MCH 27.5 MCHC 32.7 RDW 14.4 Plt Count 259 D MPV 8.1 Absolute Neuts (auto) 4.2 Neutrophils % 60.1 Lymphocytes % 21.8 D Monocytes % 13.9 H Eosinophils % 3.8 Basophils % 0.4 Nucleated RBC % 0 PT with INR INR PTT (Actin FS) Fibrinogen Sodium 142 Potassium 4.1 Chloride 108 H Carbon Dioxide 28 Anion Gap 5 L BUN 17.2 Creatinine 0.9 Est GFR (CKD-EPI)AfAm 96.69 Est GFR (CKD-EPI)NonAf 83.42 Random Glucose 78 Uric Acid 4.5 Calcium 9.1 Magnesium 1.7 L Total Bilirubin 0.4 AST 40 H ALT 75 H Alkaline Phosphatase 78 Total Protein 5.7 L Albumin 2.8 L Urine Color Yellow Urine Appearance Cloudy Urine pH 6.0 Ur Specific [place] 1.012 Urine Protein 1+ H Urine Glucose (UA) Negative Urine Ketones Negative Urine Blood 3+ H Urine Nitrite Negative Urine Bilirubin Negative Urine Urobilinogen 0.2 Ur Leukocyte Esterase Trace Urine WBC (Auto) 16 Urine RBC (Auto) 5 Urine Casts (Auto) 3 U Epithel Cells (Auto) 9.9 Urine Bacteria (Auto) 213.6 02/22/19 02/22/19 02/22/19 13:08 13:08 13:08 WBC RBC Hgb Hct MCV MCH MCHC RDW Plt Count MPV Absolute Neuts (auto) Neutrophils % Lymphocytes % Monocytes % Eosinophils % Basophils % Nucleated RBC % PT with INR 11.90 INR 1.01 PTT (Actin FS) 31.8 Fibrinogen 234.0 L Sodium Potassium Chloride Carbon Dioxide Anion Gap BUN Creatinine Est GFR (CKD-EPI)AfAm Est GFR (CKD-EPI)NonAf Random Glucose Uric Acid Calcium Magnesium Total Bilirubin AST ALT Alkaline Phosphatase Total Protein Albumin Urine Color Urine Appearance Urine pH Ur Specific [place] Urine Protein Urine Glucose (UA) Urine Ketones Urine Blood Urine Nitrite Urine Bilirubin Urine Urobilinogen Ur Leukocyte Esterase Urine WBC (Auto) Urine RBC (Auto) Urine Casts (Auto) U Epithel Cells (Auto) Urine Bacteria (Auto) ASSESSMENT/PLAN: This is a 33 year old female , 7 days post () with PMH significant for proteinuria in previous and prolactinoma in 2017. She was referred to [facility] by her OB due to suspected post pre-eclampsia after she was fond to have a BP of 188/100. #HTN - Labetalol administered, will continue 100 PO BID, 10mg IV PRN Q2H - MgSO4 to prevent seizures, will monitor Mg - Admitted to ICU for close monitoring, Dr. Rodney consulted - Dr. Marsh (OB) consulted #Anemia - H&H 9.9/30.3 - Likely due to blood loss from recent surgery and chronic nutritional anemia - Complete anemia workup with Iron studies and stool guaiac ordered, if there is evidence of Fe deficiency, should start Venofer - Continue to monitor #Transaminitis - Mild, AST 40, ALT 75 - Continue to monitor - Repeat LFTs ordered in the AM #FEN - Monitor Mg - Na diet #DVT PE - Heparin 5000 SQ (safe for mothers) Visit type - Emergency Visit Emergency Visit: Yes ED Registration Date: 02/22/19 Care time: The patient presented to the Emergency Department on the above date and was hospitalized for further evaluation of their emergent condition. - New Patient This patient is new to me today: Yes Date on this admission: 02/23/19 - Critical Care Critical Care patient: No ATTENDING PHYSICIAN STATEMENT I saw and evaluated the patient. I reviewed the resident's note and discussed the case with the resident. I agree with the resident's findings and plan as documented. SUBJECTIVE: OBJECTIVE: ASSESSMENT AND PLAN:
[2019-02-22] MEDS: LABETALOL HCL 100 MG TABLET (FP) PO SCH (23:45)
[2019-02-23 06:15] LABS: HEMOGLOBIN 9.9 GM/dL (10.7-15.3); LYMPH % 21.3 % (8-40); MCH 27.5 pg (25.7-33.7)
[2019-02-23 06:34] LABS: IRON SERUM 28 ug/dL (50-175); TOTAL IRON BINDING CAPACITY 260 ug/dL (250-450)
[2019-02-23] MEDS: ACETAMINOPHEN 1000 MG/100 ML VIAL (NON FORMULARY) IVPB PRN (06:37)
[2019-02-23] MEDS: HEPARIN NA (PORCINE) 5,000 UNITS/ML 1ML VIAL SQ SCH ×3 (06:37→23:07)
[2019-02-23 06:41] LABS: ALBUMIN 2.5 g/dl (3.4-5.0); BILIRUBIN,TOTAL 0.4 mg/dL (0.2-1); BLOOD UREA NITROGEN 14.5 mg/dL (7-18); CALCIUM 8.1 mg/dL (8.5-10.1); CREATININE 0.9 mg/dL (0.55-1.3); MAGNESIUM 5.2 mg/dL (1.8-2.4); POTASSIUM 3.6 mmol/L (3.5-5.1); TOT PROT 5.4 g/dl (6.4-8.2)
[2019-02-23 06:44] LABS: BASO % 0.2 % (0-2.0); EOS % 3.8 % (0-4.5); HEMATOCRIT 30.1 % (32.4-45.2); MCHC 32.7 g/dl (32.0-36.0); MONO % 15.4 % (3.8-10.2); NEUT % 59.3 % (42.8-82.8); PLATELET COUNT 270 K/MM3 (134-434); RBC 3.59 M/mm3 (3.60-5.2); RDW 14.5 % (11.6-15.6); WHITE BLOOD COUNT 7.1 K/mm3 (4.0-10.0)
[2019-02-23] MEDS: MAGNESIUM SULFATE 20GM/500ML - 20 GM/500 ML INFUS.BAG IVPB SCH (09:00)
[2019-02-23] MEDS: LABETALOL HCL 100 MG TABLET (FP) PO SCH (09:05)
[2019-02-23] MEDS: MUPIROCIN 2% TOPICAL OINTMENT FOR DECOLONIZATION NS SCH ×2 (09:09→23:08)
[2019-02-23] MEDS ORDERED: ENOXAPARIN NA (PORCINE) 40 MG/0.4 ML DISP.SYRIN SQ SCH (10:00)
[2019-02-23] MEDS ORDERED: LABETALOL HCL 100 MG TABLET (FP) PO ONE (10:00)
--- NOTE | 2019-02-23 11:23 | EKG ---
Test Reason : Blood Pressure : / mmHG Vent. Rate : 072 BPM Atrial Rate : 072 BPM P-R Int : 160 ms QRS Dur : 072 ms QT Int : 406 ms P-R-T Axes : 053 001 025 degrees QTc Int : 444 ms NORMAL SINUS RHYTHM POSSIBLE LEFT ATRIAL ENLARGEMENT LOW VOLTAGE QRS BORDERLINE ECG NO PREVIOUS ECGS AVAILABLE Confirmed by GABY ONTIVEROS, JILL ([id number]) on 02/23/2019 11:22:38 AM Referred By: Confirmed By:JILL GRIFFIN MD
--- NOTE | 2019-02-23 12:27 | PN ---
Teaching Attending Note Name of Resident: Francois Tan ATTENDING PHYSICIAN STATEMENT I saw and evaluated the patient. I reviewed the resident's note and discussed the case with the resident. I agree with the resident's findings and plan as documented. SUBJECTIVE: Pt seen and examined in the ICU. Headaches resolved. No nausea, vision changes. BP controlled with PO medications. Tolerating PO. OBJECTIVE: Vital Signs Period Temp Pulse Resp BP Sys/Lyons Pulse Ox Last 24 Hr 98.0 F-98.4 F 66-83 10-18 138-188/78-116 98-100 Intake & Output 02/20/19 02/21/19 02/22/19 02/23/19 23:59 23:59 23:59 23:59 Intake Total 1640 Balance 1640 Weight 97.522 kg Gen: NAD at rest Heart: RRR Lung: decreased breath sounds at the bases Abd: soft, nontender Ext: no edema CBC, BMP 02/23/19 05:35 02/23/19 05:35 Active Medications Acetaminophen (Ofirmev Injection -) 1,000 mg IVPB Q6H PRN PRN Reason: HEADACHE Last Admin: 02/23/19 06:37 Dose: 1,000 mg Chlorhexidine Gluconate (Hibiclens For Decolonization -) 1 applic TP HS MARIAMA Heparin Sodium (Porcine) (Heparin -) 5,000 unit SQ TID [facility] Last Admin: 02/23/19 06:37 Dose: 5,000 unit Magnesium Sulfate (Magnesium Sulfate 20gm/500ml -) 20 gm in 500 mls @ 50 mls/ hr IVPB ASDIR [facility] Stop: 02/23/19 23:59 Last Admin: 02/23/19 09:00 Dose: 50 mls/hr Labetalol HCl (Normodyne Injection -) 10 mg IVPUSH Q2H PRN PRN Reason: HYPERTENSION Labetalol HCl (Normodyne -) 200 mg PO BID MARIAMA Mupirocin (Bactroban Ointment (For Decolonization) -) 1 applic NS BID [facility] Stop: 02/28/19 09:59 Last Admin: 02/23/19 09:09 Dose: 1 applic ASSESSMENT AND PLAN: Pre-eclampsia Mild HELLP Anemia - continue magnesium gtt per OB - BP control with PO meds - PO as tolerated - DVT prophylaxis - can monitor on unit
[2019-02-23 12:56] LABS: RATIO URIN PROTEIN/URIN CREAT 0.26 MG/DL
--- NOTE | 2019-02-23 13:58 | PN ---
Physical Exam: SUBJECTIVE: Patient seen and examined at bedside. Admitted overnight. No complaints today. Patient denies MAC, changes in vision, confusion, lightheadedness, dizziness, cp, sob, abd pain, n/v, inability to tolerate PO. OBJECTIVE: GEN: NAD, comfortable. AAOx3 HEENT: NC/AT, EOMI. Normal voice. Supple neck w/ FROM. CV: S1/S2, RRR, no m/r/g LUNG: CTAB, no wheezes, crackles, rales, rhonchi. GI: soft, ndnt, +BS, no guarding, no rebound. No masses. SKIN: warm, dry, normal turgor PSYCH: normal mood and affect Vital Signs Period Temp Pulse Resp BP Sys/Lyons Pulse Ox Last 24 Hr 98.0 F-98.4 F 69-83 10-18 138-175/78-116 98-100 Laboratory Results - last 24 hr 02/22/19 02/22/19 02/22/19 13:08 13:08 13:08 WBC 7.0 RBC 3.60 Hgb 9.9 L Hct 30.3 L MCV 84.1 MCH 27.5 MCHC 32.7 RDW 14.4 Plt Count 259 D MPV 8.1 Absolute Neuts (auto) 4.2 Neutrophils % 60.1 Lymphocytes % 21.8 D Monocytes % 13.9 H Eosinophils % 3.8 Basophils % 0.4 Nucleated RBC % 0 PT with INR INR PTT (Actin FS) Fibrinogen Sodium 142 Potassium 4.1 Chloride 108 H Carbon Dioxide 28 Anion Gap 5 L BUN 17.2 Creatinine 0.9 Est GFR (CKD-EPI)AfAm 96.69 Est GFR (CKD-EPI)NonAf 83.42 Random Glucose 78 Uric Acid 4.5 Calcium 9.1 Magnesium 1.7 L Iron TIBC Iron Saturation Unsaturated IBC Total Bilirubin 0.4 AST 40 H ALT 75 H Alkaline Phosphatase 78 Total Protein 5.7 L Albumin 2.8 L Urine Color Yellow Urine Appearance Cloudy Urine pH 6.0 Ur Specific [place] 1.012 Urine Protein 1+ H Urine Glucose (UA) Negative Urine Ketones Negative Urine Blood 3+ H Urine Nitrite Negative Urine Bilirubin Negative Urine Urobilinogen 0.2 Ur Leukocyte Esterase Trace Urine WBC (Auto) 16 Urine RBC (Auto) 5 Urine Casts (Auto) 3 U Epithel Cells (Auto) 9.9 Urine Bacteria (Auto) 213.6 U Random Total Protein Urine Creatinine Protein/Creatinin Ratio 02/22/19 02/22/19 02/22/19 13:08 13:08 13:08 WBC RBC Hgb Hct MCV MCH MCHC RDW Plt Count MPV Absolute Neuts (auto) Neutrophils % Lymphocytes % Monocytes % Eosinophils % Basophils % Nucleated RBC % PT with INR 11.90 INR 1.01 PTT (Actin FS) 31.8 Fibrinogen 234.0 L Sodium Potassium Chloride Carbon Dioxide Anion Gap BUN Creatinine Est GFR (CKD-EPI)AfAm Est GFR (CKD-EPI)NonAf Random Glucose Uric Acid Calcium Magnesium Iron TIBC Iron Saturation Unsaturated IBC Total Bilirubin AST ALT Alkaline Phosphatase Total Protein Albumin Urine Color Urine Appearance Urine pH Ur Specific [place] Urine Protein Urine Glucose (UA) Urine Ketones Urine Blood Urine Nitrite Urine Bilirubin Urine Urobilinogen Ur Leukocyte Esterase Urine WBC (Auto) Urine RBC (Auto) Urine Casts (Auto) U Epithel Cells (Auto) Urine Bacteria (Auto) U Random Total Protein Urine Creatinine Protein/Creatinin Ratio 02/23/19 02/23/19 02/23/19 01:00 05:35 05:35 WBC 7.1 RBC 3.59 L Hgb 9.9 L Hct 30.1 L MCV 84.0 MCH 27.5 MCHC 32.7 RDW 14.5 Plt Count 270 MPV 8.0 Absolute Neuts (auto) 4.2 Neutrophils % 59.3 Lymphocytes % 21.3 Monocytes % 15.4 H Eosinophils % 3.8 Basophils % 0.2 Nucleated RBC % 0 PT with INR INR PTT (Actin FS) Fibrinogen Sodium 142 Potassium 3.6 Chloride 108 H Carbon Dioxide 27 Anion Gap 7 L BUN 14.5 Creatinine 0.9 Est GFR (CKD-EPI)AfAm 96.69 Est GFR (CKD-EPI)NonAf 83.42 Random Glucose 83 Uric Acid Calcium 8.1 L Magnesium 4.6 H 5.2 H Iron TIBC Iron Saturation Unsaturated IBC Total Bilirubin 0.4 AST 34 ALT 70 H Alkaline Phosphatase 72 Total Protein 5.4 L Albumin 2.5 L Urine Color Urine Appearance Urine pH Ur Specific [place] Urine Protein Urine Glucose (UA) Urine Ketones Urine Blood Urine Nitrite Urine Bilirubin Urine Urobilinogen Ur Leukocyte Esterase Urine WBC (Auto) Urine RBC (Auto) Urine Casts (Auto) U Epithel Cells (Auto) Urine Bacteria (Auto) U Random Total Protein Urine Creatinine Protein/Creatinin Ratio 02/23/19 02/23/19 05:35 11:30 WBC RBC Hgb Hct MCV MCH MCHC RDW Plt Count MPV Absolute Neuts (auto) Neutrophils % Lymphocytes % Monocytes % Eosinophils % Basophils % Nucleated RBC % PT with INR INR PTT (Actin FS) Fibrinogen Sodium Potassium Chloride Carbon Dioxide Anion Gap BUN Creatinine Est GFR (CKD-EPI)AfAm Est GFR (CKD-EPI)NonAf Random Glucose Uric Acid Calcium Magnesium Iron 28 L TIBC 260 Iron Saturation 10 L Unsaturated IBC 232 Total Bilirubin AST ALT Alkaline Phosphatase Total Protein Albumin Urine Color Urine Appearance Urine pH Ur Specific [place] Urine Protein Urine Glucose (UA) Urine Ketones Urine Blood Urine Nitrite Urine Bilirubin Urine Urobilinogen Ur Leukocyte Esterase Urine WBC (Auto) Urine RBC (Auto) Urine Casts (Auto) U Epithel Cells (Auto) Urine Bacteria (Auto) U Random Total Protein 13.8 H Urine Creatinine 52.0 Protein/Creatinin Ratio 0.260 Active Medications Generic Name Dose Route Start Last Admin Trade Name Freq PRN Reason Stop Dose Admin Acetaminophen 1,000 mg 02/22/19 20:46 02/23/19 06:37 Ofirmev Injection - IVPB 1,000 mg Q6H PRN Administration HEADACHE Chlorhexidine Gluconate 1 applic 02/23/19 22:00 Hibiclens For Decolonization - TP HS MARIAMA Heparin Sodium (Porcine) 5,000 unit 02/23/19 06:00 02/23/19 06:37 Heparin - SQ 5,000 unit TID MARIAMA Administration Magnesium Sulfate 20 gm in 500 mls @ 50 mls/hr 02/22/19 14:00 02/23/19 09:00 Magnesium Sulfate 20gm/500ml - IVPB 02/23/19 23:59 50 mls/hr ASDIR MARIAMA Administration Labetalol HCl 10 mg 02/22/19 20:28 Normodyne Injection - IVPUSH Q2H PRN HYPERTENSION Labetalol HCl 200 mg 02/23/19 22:00 Normodyne - PO BID MARIAMA Mupirocin 1 applic 02/23/19 10:00 02/23/19 09:09 Bactroban Ointment (For Decolonization) - NS 02/28/19 09:59 1 applic BID MARIAMA Administration ASSESSMENT/PLAN: 33F h/o protein in with pre-eclampsia. CV - Pre-eclampsia BP goal 120-150 systolic; 70-90 diastolic Mg gtt per OB Labetalol PRN Tele monitoring for spO2 as mg is respiratory depressant Neuro Neurochecks Q2H Tylenol PRN for pain FEN/GI Mg levels per OBGYN CMP in AM Full Diet PPx - Heparin SC Dispo - L&D Visit type - Emergency Visit Emergency Visit: Yes ED Registration Date: 02/22/19 Care time: The patient presented to the Emergency Department on the above date and was hospitalized for further evaluation of their emergent condition. - New Patient This patient is new to me today: Yes Date on this admission: 02/23/19 - Critical Care Critical Care patient: Yes Total Critical Care Time (in minutes): 30 Critical Care Statement: The care of this patient involved high complexity decision making to prevent further life threatening deterioration of the patient 's condition and/or to evaluate & treat vital organ system(s) failure or risk of failure.
--- NOTE | 2019-02-23 16:10 | PN ---
Teaching Attending Note Name of Resident: Molly Urena ATTENDING PHYSICIAN STATEMENT I saw and evaluated the patient. I reviewed the resident's note and discussed the case with the resident. I agree with the resident's findings and plan as documented. SUBJECTIVE: no fever or chills. feels better denies cp or SOB , no MAC or visual changes OBJECTIVE: NAD Cv : RRR Lungs: CTAB Ext : 1+ edema on LE Abd: sfot, NT, ND. suprapubic surgical scar. ASSESSMENT AND PLAN: 33 y/o ladyw ith h/o C section 1 week ago, who presented with HTN 1- HTN urgency/pre-3clampsia: - increased labetalol to 200 BID due to diasotlic 110 on monitor - monitor - cont Mg sulfate to finish 24 hr . - check protein /cr ration 2- Elevated LFts . mild elevation , < 2 folds the upper normal limit. - doubt HELLP syndrome, as plt are normal and Hb at base line . - will check smear, hapto, and LDH to r/o a partial HELLP - follow LFTS 3- heparin sq
--- NOTE | 2019-02-23 16:19 | PN ---
Post Progress Note - Subjective Subjective: States feels well, improved, no SOB, decreasing edema, no MAC, no visual changes , no RUQ tenderness Post Day: 8 Type of Delivery: Repeat C/S Vital Signs: Vital Signs Temperature 98.0 F 02/23/19 11:00 Pulse Rate 81 02/23/19 11:00 Respiratory Rate 15 02/23/19 11:00 Blood Pressure 150/91 02/23/19 11:00 O2 Sat by Pulse Oximetry (%) 98 02/23/19 09:00 Breast Exam: Yes: Soft Uterus: Yes: Fundus Firm Incision: Yes: Sutures intact Abdomen/GI: Yes: Abdomen soft Lochia: Yes: Rubra Lochia, amount: Small Extremities: Yes: Calves non-tender Activity: Other (Bed rest) - Labs Labs: CBC WBC 7.1 K/mm3 (4.0-10.0) 02/23/19 05:35 RBC 3.59 M/mm3 (3.60-5.2) L 02/23/19 05:35 Hgb 9.9 GM/dL (10.7-15.3) L 02/23/19 05:35 Hct 30.1 % (32.4-45.2) L 02/23/19 05:35 MCV 84.0 fl (80-96) 02/23/19 05:35 MCH 27.5 pg (25.7-33.7) 02/23/19 05:35 MCHC 32.7 g/dl (32.0-36.0) 02/23/19 05:35 RDW 14.5 % (11.6-15.6) 02/23/19 05:35 Plt Count 270 K/MM3 (134-434) 02/23/19 05:35 MPV 8.0 fl (7.5-11.1) 02/23/19 05:35 Absolute Neuts (auto) 4.2 K/mm3 (1.5-8.0) 02/23/19 05:35 Neutrophils % 59.3 % (42.8-82.8) 02/23/19 05:35 Lymphocytes % 21.3 % (8-40) 02/23/19 05:35 Monocytes % 15.4 % (3.8-10.2) H 02/23/19 05:35 Eosinophils % 3.8 % (0-4.5) 02/23/19 05:35 Basophils % 0.2 % (0-2.0) 02/23/19 05:35 Nucleated RBC % 0 % (0-0) 02/23/19 05:35 Assessment/Plan 33yo P3 now POD # 8 s/p repeat c/section, comfortable, not in pain readmited with Post preeclampsia, some features of HELLP by blood work elevated LFTs now s/p 24hr of MgSo4, d/cristiana now on Labetalol for severely elevated BPs current BPs are still 150/90 will transfer to PP floor to finalize the anti HTN managment follow repeat labs Consider SW consult for VNS BP check at home will follow in the office in 1 wk
[2019-02-23 17:28] LABS: BASO % 0.2 % (0-2.0); EOS % 3.9 % (0-4.5); HEMATOCRIT 33.4 % (32.4-45.2); HEMOGLOBIN 10.9 GM/dL (10.7-15.3); LYMPH % 19.4 % (8-40); MCH 27.6 pg (25.7-33.7); MCHC 32.8 g/dl (32.0-36.0); MEAN CELL VOLUME 84.3 fl (80-96); MEAN PLT VOLUME 8.1 fl (7.5-11.1); MONO % 16.5 % (3.8-10.2); PLATELET COUNT 295 K/MM3 (134-434); RBC 3.96 M/mm3 (3.60-5.2); RDW 14.5 % (11.6-15.6); WHITE BLOOD COUNT 7.2 K/mm3 (4.0-10.0)
[2019-02-23 17:58] LABS: ALBUMIN 2.8 g/dl (3.4-5.0); BILIRUBIN,TOTAL 0.3 mg/dL (0.2-1); BLOOD UREA NITROGEN 12.7 mg/dL (7-18); MAGNESIUM 6.2 mg/dL (1.8-2.4); POTASSIUM 3.9 mmol/L (3.5-5.1); TOT PROT 5.8 g/dl (6.4-8.2)
--- NOTE | 2019-02-23 18:13 | PN ---
Physical Exam: SUBJECTIVE: Patient seen and examined OBJECTIVE: Vital Signs Period Temp Pulse Resp BP Sys/Lyons Pulse Ox Last 24 Hr 97.8 F-98.2 F 74-87 10-18 133-175/78-104 98-100 GENERAL: The patient is awake, alert, and fully oriented, in no acute distress. HEAD: Normal with no signs of trauma. EYES: PERRL, extraocular movements intact, sclera anicteric, conjunctiva clear. No ptosis. ENT: Ears normal, nares patent, oropharynx clear without exudates, moist mucous membranes. NECK: Trachea midline, full range of motion, supple. LUNGS: Breath sounds equal, clear to auscultation bilaterally, no wheezes, no crackles, no accessory muscle use. HEART: Regular rate and rhythm, S1, S2 without murmur, rub or gallop. ABDOMEN: Soft, nontender, nondistended, normoactive bowel sounds, no guarding, no rebound, no hepatosplenomegaly, no masses. EXTREMITIES: 2+ pulses, warm, well-perfused, no edema. NEUROLOGICAL: Cranial nerves II through XII grossly intact. Normal speech, gait not observed. PSYCH: Normal mood, normal affect. SKIN: Warm, dry, normal turgor, no rashes or lesions noted Laboratory Results - last 24 hr 02/23/19 02/23/19 02/23/19 01:00 05:35 05:35 WBC 7.1 RBC 3.59 L Hgb 9.9 L Hct 30.1 L MCV 84.0 MCH 27.5 MCHC 32.7 RDW 14.5 Plt Count 270 MPV 8.0 Absolute Neuts (auto) 4.2 Neutrophils % 59.3 Lymphocytes % 21.3 Monocytes % 15.4 H Eosinophils % 3.8 Basophils % 0.2 Nucleated RBC % 0 Sodium 142 Potassium 3.6 Chloride 108 H Carbon Dioxide 27 Anion Gap 7 L BUN 14.5 Creatinine 0.9 Est GFR (CKD-EPI)AfAm 96.69 Est GFR (CKD-EPI)NonAf 83.42 Random Glucose 83 Calcium 8.1 L Magnesium 4.6 H 5.2 H Iron TIBC Iron Saturation Unsaturated IBC Total Bilirubin 0.4 AST 34 ALT 70 H Alkaline Phosphatase 72 LD Total Total Protein 5.4 L Albumin 2.5 L U Random Total Protein Urine Creatinine Protein/Creatinin Ratio 02/23/19 02/23/19 02/23/19 05:35 11:30 17:00 WBC 7.2 RBC 3.96 Hgb 10.9 Hct 33.4 MCV 84.3 MCH 27.6 MCHC 32.8 RDW 14.5 Plt Count 295 MPV 8.1 Absolute Neuts (auto) 4.3 Neutrophils % 60.0 Lymphocytes % 19.4 Monocytes % 16.5 H Eosinophils % 3.9 Basophils % 0.2 Nucleated RBC % 0 Sodium Potassium Chloride Carbon Dioxide Anion Gap BUN Creatinine Est GFR (CKD-EPI)AfAm Est GFR (CKD-EPI)NonAf Random Glucose Calcium Magnesium Iron 28 L TIBC 260 Iron Saturation 10 L Unsaturated IBC 232 Total Bilirubin AST ALT Alkaline Phosphatase LD Total Total Protein Albumin U Random Total Protein 13.8 H Urine Creatinine 52.0 Protein/Creatinin Ratio 0.260 02/23/19 17:00 WBC RBC Hgb Hct MCV MCH MCHC RDW Plt Count MPV Absolute Neuts (auto) Neutrophils % Lymphocytes % Monocytes % Eosinophils % Basophils % Nucleated RBC % Sodium 141 Potassium 3.9 Chloride 104 Carbon Dioxide 29 Anion Gap 8 BUN 12.7 Creatinine 1.0 Est GFR (CKD-EPI)AfAm 85.12 Est GFR (CKD-EPI)NonAf 73.45 Random Glucose 99 Calcium 8.0 L Magnesium 6.2 H Iron TIBC Iron Saturation Unsaturated IBC Total Bilirubin 0.3 AST 29 ALT 70 H Alkaline Phosphatase 82 LD Total 315 H Total Protein 5.8 L Albumin 2.8 L U Random Total Protein Urine Creatinine Protein/Creatinin Ratio Active Medications Generic Name Dose Route Start Last Admin Trade Name Freq PRN Reason Stop Dose Admin Acetaminophen 1,000 mg 02/22/19 20:46 02/23/19 06:37 Ofirmev Injection - IVPB 1,000 mg Q6H PRN Administration HEADACHE Chlorhexidine Gluconate 1 applic 02/23/19 22:00 Hibiclens For Decolonization - TP HS MARIAMA Heparin Sodium (Porcine) 5,000 unit 02/23/19 06:00 02/23/19 14:00 Heparin - SQ 5,000 unit TID MARIAMA Administration Magnesium Sulfate 20 gm in 500 mls @ 50 mls/hr 02/22/19 14:00 02/23/19 09:00 Magnesium Sulfate 20gm/500ml - IVPB 02/23/19 23:59 50 mls/hr ASDIR MARIAMA Administration Labetalol HCl 10 mg 02/22/19 20:28 Normodyne Injection - IVPUSH Q2H PRN HYPERTENSION Labetalol HCl 200 mg 02/23/19 22:00 Normodyne - PO BID MARIAMA Mupirocin 1 applic 02/23/19 10:00 02/23/19 09:09 Bactroban Ointment (For Decolonization) - NS 02/28/19 09:59 1 applic BID MARIAMA Administration ASSESSMENT/PLAN: 33 y/o ladyw ith h/o C section 1 week ago, who presented with HTN Pre-Eclampsia increased labetalol to 200 BID due to diasotlic 110 on monitor Continue to monitor BP s/p 24hr of MgSo4, d/cristiana now as per Ob protein /cr ratio of 0.260, random total protein 13.8 As per Ob, Consider SW consult for VNS BP check at home, will transfer to PP floor to finalize the anti HTN managment Elevated LFts LFTs trending down with no RUQ tenderness; follow LFTS r/o partial HELLP/HELLP syndrome check smear, hapto, and LDH DVT heparin sq Visit type - Emergency Visit Emergency Visit: Yes ED Registration Date: 02/22/19 Care time: The patient presented to the Emergency Department on the above date and was hospitalized for further evaluation of their emergent condition. - New Patient This patient is new to me today: Yes Date on this admission: 02/23/19 - Critical Care Critical Care patient: Yes Total Critical Care Time (in minutes): 35 Critical Care Statement: The care of this patient involved high complexity decision making to prevent further life threatening deterioration of the patient 's condition and/or to evaluate & treat vital organ system(s) failure or risk of failure. - Discharge Referral Referred to [facility] Med P.C.: No ATTENDING PHYSICIAN STATEMENT I saw and evaluated the patient. I reviewed the resident's note and discussed the case with the resident. I agree with the resident's findings and plan as documented. SUBJECTIVE: OBJECTIVE: ASSESSMENT AND PLAN:
[2019-02-23] MEDS: LABETALOL HCL 5 MG/1 ML (100MG/20 ML VIAL) IVPUSH PRN (18:58)
[2019-02-23] MEDS ORDERED: LABETALOL HCL 100 MG TABLET (FP) PO SCH (22:00)
[2019-02-23] MEDS: CHLORHEXIDINE GLUCONATE 4% CLEANSER FOR DECOLONIZATION TP SCH (23:08)
[2019-02-24] MEDS: LABETALOL HCL 5 MG/1 ML (100MG/20 ML VIAL) IVPUSH PRN ×8 (00:53→22:44)
[2019-02-24] MEDS: HEPARIN NA (PORCINE) 5,000 UNITS/ML 1ML VIAL SQ SCH ×3 (06:24→21:18)
[2019-02-24 07:12] LABS: BASO % 0.2 % (0-2.0); EOS % 3.6 % (0-4.5); HEMATOCRIT 29.2 % (32.4-45.2); HEMOGLOBIN 9.7 GM/dL (10.7-15.3); LYMPH % 25.7 % (8-40); MCH 27.7 pg (25.7-33.7); MCHC 33.1 g/dl (32.0-36.0); MEAN CELL VOLUME 83.7 fl (80-96); MONO % 14.1 % (3.8-10.2); NEUT % 56.4 % (42.8-82.8); PLATELET COUNT 279 K/MM3 (134-434); RBC 3.49 M/mm3 (3.60-5.2); RDW 14.9 % (11.6-15.6); WHITE BLOOD COUNT 6.9 K/mm3 (4.0-10.0)
[2019-02-24 07:34] LABS: ALBUMIN 2.6 g/dl (3.4-5.0); BILIRUBIN,TOTAL 0.3 mg/dL (0.2-1); BLOOD UREA NITROGEN 13.4 mg/dL (7-18); CALCIUM 7.6 mg/dL (8.5-10.1); POTASSIUM 3.8 mmol/L (3.5-5.1); TOT PROT 5.2 g/dl (6.4-8.2)
[2019-02-24 09:31] LABS: INR 0.97 (0.83-1.09); PROTHROMBIN TIME (PATIENT) 11.5 SEC (9.7-13.0)
[2019-02-24] MEDS: LABETALOL HCL 100 MG TABLET (FP) PO SCH ×2 (09:31→21:17)
[2019-02-24 09:33] LABS: ACTIVATED PTT 29.9 SECONDS (25.2-36.5)
[2019-02-24] MEDS: MUPIROCIN 2% TOPICAL OINTMENT FOR DECOLONIZATION NS SCH ×2 (12:10→21:18)
--- NOTE | 2019-02-24 12:48 | PN ---
Teaching Attending Note Name of Resident: Johanne Rooney ATTENDING PHYSICIAN STATEMENT I saw and evaluated the patient. I reviewed the resident's note and discussed the case with the resident. I agree with the resident's findings and plan as documented. SUBJECTIVE: No fever or chills. feels better . was anxious this am due to elevated BP OBJECTIVE: NAD, sitting in bed pumping Cv : RRR, no MRG Lungs: CTAB Ext : 1+ edema on LE Abd : not examined ASSESSMENT AND PLAN: 33 y/o lady with h/o C section 1 week ago, who presented with HTN 1- HTN urgency/pre-Eclampsia: -Increase Labetalol to 300 BID . HR has room - monitor -off Mag sulfate - Protein to Cr ratio noted. no significant proteinuria 2-Questionable partial HELLP syndrome. - LDH slightly elevated, follow peripheral smear, HApto. LFTs trended down - consistently low fibrinogen, but nL Pt and PTT. No signs of bleeding. doubt DIC . will ask heme to help 3- Heparin sq
[2019-02-24 13:02] LABS: ANISOCYTOSIS 2+; MACROCYTOSIS 0; OVALOCYTE 1+; PLATELET ESTIMATE NORMAL; TARGET CELLS 1+; TEAR DROP CELLS 1+
--- NOTE | 2019-02-24 16:56 | PN ---
Physical Exam: SUBJECTIVE: Patient seen and examined. Lying comfortably with no complaints. OBJECTIVE: Vital Signs Period Temp Pulse Resp BP Sys/Lyons Pulse Ox Last 24 Hr 98.0 F-98.6 F 68-88 15-18 146-186/76-148 98-99 GENERAL: The patient is awake, alert, and fully oriented, in no acute distress. HEAD: Normal with no signs of trauma. EYES: PERRL, extraocular movements intact, sclera anicteric, conjunctiva clear. No ptosis. ENT: Ears normal, nares patent, oropharynx clear without exudates, moist mucous membranes. NECK: Trachea midline, full range of motion, supple. LUNGS: Breath sounds equal, clear to auscultation bilaterally, no wheezes, no crackles, no accessory muscle use. HEART: Regular rate and rhythm, S1, S2 without murmur, rub or gallop. ABDOMEN: Soft, nontender, nondistended, normoactive bowel sounds, no guarding, no rebound, no hepatosplenomegaly, no masses. EXTREMITIES: 2+ pulses, warm, well-perfused, no edema. NEUROLOGICAL: Cranial nerves II through XII grossly intact. Normal speech, gait not observed. PSYCH: Normal mood, normal affect. SKIN: Warm, dry, normal turgor, no rashes or lesions noted Laboratory Results - last 24 hr 02/23/19 02/23/19 02/24/19 17:00 17:00 06:10 WBC 7.2 6.9 RBC 3.96 3.49 L Hgb 10.9 9.7 L Hct 33.4 29.2 L MCV 84.3 83.7 MCH 27.6 27.7 MCHC 32.8 33.1 RDW 14.5 14.9 Plt Count 295 279 MPV 8.1 8.0 Absolute Neuts (auto) 4.3 3.9 Neutrophils % 60.0 56.4 Neutrophils % (Manual) 62.0 Band Neutrophils % 1.0 Lymphocytes % 19.4 25.7 D Lymphocytes % (Manual) 25.0 Monocytes % 16.5 H 14.1 H Monocytes % (Manual) 8 Eosinophils % 3.9 3.6 Eosinophils % (Manual) 1.0 Basophils % 0.2 0.2 Basophils % (Manual) 0.0 Myelocytes % (Man) 0 Promyelocytes % (Man) 0 Blast Cells % (Manual) 0 Nucleated RBC % 0 0 Metamyelocytes 2 Hypochromia 1+ Platelet Estimate Normal Platelet Comment Present Polychromasia 1+ Poikilocytosis 1+ Anisocytosis 2+ Microcytosis 1+ Macrocytosis 0 Target Cells 1+ Tear Drop Cells 1+ Ovalocytes 1+ Acanthocytes (Spur) 1+ PT with INR INR PTT (Actin FS) Fibrinogen Sodium 141 Potassium 3.9 Chloride 104 Carbon Dioxide 29 Anion Gap 8 BUN 12.7 Creatinine 1.0 Est GFR (CKD-EPI)AfAm 85.12 Est GFR (CKD-EPI)NonAf 73.45 Random Glucose 99 Calcium 8.0 L Magnesium 6.2 H Total Bilirubin 0.3 AST 29 ALT 70 H Alkaline Phosphatase 82 LD Total 315 H Total Protein 5.8 L Albumin 2.8 L 02/24/19 02/24/19 02/24/19 06:10 08:46 08:46 WBC RBC Hgb Hct MCV MCH MCHC RDW Plt Count MPV Absolute Neuts (auto) Neutrophils % Neutrophils % (Manual) Band Neutrophils % Lymphocytes % Lymphocytes % (Manual) Monocytes % Monocytes % (Manual) Eosinophils % Eosinophils % (Manual) Basophils % Basophils % (Manual) Myelocytes % (Man) Promyelocytes % (Man) Blast Cells % (Manual) Nucleated RBC % Metamyelocytes Hypochromia Platelet Estimate Platelet Comment Polychromasia Poikilocytosis Anisocytosis Microcytosis Macrocytosis Target Cells Tear Drop Cells Ovalocytes Acanthocytes (Spur) PT with INR 11.50 INR 0.97 PTT (Actin FS) 29.9 Fibrinogen 223.0 L Sodium 144 Potassium 3.8 Chloride 110 H Carbon Dioxide 27 Anion Gap 7 L BUN 13.4 Creatinine 1.0 Est GFR (CKD-EPI)AfAm 85.12 Est GFR (CKD-EPI)NonAf 73.45 Random Glucose 76 Calcium 7.6 L Magnesium Total Bilirubin 0.3 AST 19 ALT 54 Alkaline Phosphatase 68 LD Total Total Protein 5.2 L Albumin 2.6 L Active Medications Generic Name Dose Route Start Last Admin Trade Name Freq PRN Reason Stop Dose Admin Acetaminophen 1,000 mg 02/22/19 20:46 02/23/19 06:37 Ofirmev Injection - IVPB 1,000 mg Q6H PRN Administration HEADACHE Chlorhexidine Gluconate 1 applic 02/23/19 22:00 02/23/19 23:08 Hibiclens For Decolonization - TP 1 applic HS MARIAMA Administration Heparin Sodium (Porcine) 5,000 unit 02/23/19 06:00 02/24/19 14:02 Heparin - SQ 5,000 unit TID MARIAMA Administration Labetalol HCl 10 mg 02/22/19 20:28 02/24/19 16:19 Normodyne Injection - IVPUSH 10 mg Q2H PRN Administration HYPERTENSION Labetalol HCl 300 mg 02/24/19 09:21 02/24/19 09:31 Normodyne - PO 300 mg BID MARIAMA Administration Mupirocin 1 applic 02/23/19 10:00 02/24/19 12:10 Bactroban Ointment (For Decolonization) - NS 02/28/19 09:59 1 applic BID MARIAMA Administration ASSESSMENT/PLAN: 33 y/o ladyw ith h/o C section 1 week ago, who presented with HTN Pre-Eclampsia increased labetalol to 300 BID due to episodic rise in BP diasotlic 117 on monitor Continue to monitor BP s/p 24hr of MgSo4, d/cristiana now as per Ob protein /cr ratio of 0.260, random total protein 13.8 As per Ob, Consider SW consult for VNS BP check at home Elevated LFts LFTs trending down with no RUQ tenderness; LFTS normalized r/o partial HELLP/HELLP syndrome smear negative for hemolysis , hapto pending, and LDH 315. Fibrinogen 234->223, Fibrin degradation products pending,PT/PTT/INR normal Heme consulted DVT heparin sq Visit type - Emergency Visit Emergency Visit: Yes ED Registration Date: 02/22/19 Care time: The patient presented to the Emergency Department on the above date and was hospitalized for further evaluation of their emergent condition. - New Patient This patient is new to me today: No - Critical Care Critical Care patient: Yes Total Critical Care Time (in minutes): 35 Critical Care Statement: The care of this patient involved high complexity decision making to prevent further life threatening deterioration of the patient 's condition and/or to evaluate & treat vital organ system(s) failure or risk of failure. - Discharge Referral Referred to [facility] Med P.C.: No ATTENDING PHYSICIAN STATEMENT I saw and evaluated the patient. I reviewed the resident's note and discussed the case with the resident. I agree with the resident's findings and plan as documented. SUBJECTIVE: OBJECTIVE: ASSESSMENT AND PLAN:
--- NOTE | 2019-02-24 20:43 | CONSULT ---
Consult - text type - Consultation Consultation Note: Patient is s/p repeat delivery on 02/15/2019 who presents with headache and BP 180/95, in the setting of generalized edema. She was dx'd with sever pre- eclampsia and referred to ER. care complicated by obesity, gestational proteinuria, prior C/sections x 2 Currently on labetalol. Feels relatively well. - History Source History Provided By: Patient, Medical Record - Past Surgical History Past Surgical History: Yes: (x 3) Additional Surgical History: Abdominoplasty, liposuction - Smoking History Smoking history: Never smoked - Social History Usual Living Arrangement: With Spouse ADL: Independent - Allergies Allergies/Adverse Reactions: Allergies Allergy/AdvReac Type Severity Reaction Status Date / Time No Known Allergies Allergy Verified 02/22/19 13:34 - Home Medications Home Medications: Ambulatory Orders Vitamins (Sjr) - 1 tab PO DAILY 02/15/19 Ibuprofen [Motrin -] 600 mg PO QID #28 tablet 02/18/19 Ibuprofen [Motrin -] 600 mg PO TID #90 tablet 02/18/19 Family Disease History - Family Disease History Family Disease History: Heart Disease: Father, Other: Mother (Lupus) Last Vital Signs Temp Pulse Resp BP Pulse Ox 98.1 F 71 12 148/96 99 02/24/19 22:17 02/25/19 01:00 02/25/19 01:00 02/25/19 01:00 02/25/19 00:27 Constitutional: Yes: No Distress, Calm, Obese Eyes: Yes: WNL, Conjunctiva Clear, EOM Intact HENT: Yes: WNL, Atraumatic, Normocephalic Neck: Yes: WNL Cardiovascular: Yes: WNL, Regular Rate and Rhythm Gastrointestinal: Yes: Normal Bowel Sounds, Soft, Abdomen, Obese Extremities: Yes: WNL Edema: trace b/l lower ext. Integumentary: Yes: WNL Abnormal Lab Results 02/24/19 02/24/19 02/24/19 06:10 06:10 08:46 RBC 3.49 L Hgb 9.7 L Hct 29.2 L Monocytes % 14.1 H Fibrinogen 223.0 L Chloride 110 H Anion Gap 7 L Calcium 7.6 L Total Protein 5.2 L Albumin 2.6 L A/P 33 y/o patient is s/p repeat delivery on 02/15/2019 who presents with headache and BP 180/95, in the setting of generalized edema. She was dx'd with pre-eclampsia. care complicated by obesity, gestational proteinuria, prior C/sections x 2 Preeclampsia, post Hemoglobin stable-- unlikely hemolysis LDH mildly elevated. Haptoglobin pending. Will check peripheral smear LFTs normalized --ALT mildly elevated; now normal fibrinogen --mildly low --234 -- usually elevated fibrinogen leel. Pt/ PTT--normal. will monitor 1+ protein in the urine will request cardiology consult, per patient request will follow clinical course
[2019-02-24] MEDS: CHLORHEXIDINE GLUCONATE 4% CLEANSER FOR DECOLONIZATION TP SCH (21:17)
[2019-02-24] MEDS: ACETAMINOPHEN 325 MG TABLET (FP) PO PRN (21:25)
[2019-02-25] MEDS: HEPARIN NA (PORCINE) 5,000 UNITS/ML 1ML VIAL SQ SCH ×3 (05:32→21:24)
[2019-02-25] MEDS: LABETALOL HCL 5 MG/1 ML (100MG/20 ML VIAL) IVPUSH PRN ×3 (05:32→17:21)
[2019-02-25 06:23] LABS: BASO % 0.2 % (0-2.0); EOS % 5.1 % (0-4.5); HEMOGLOBIN 10.1 GM/dL (10.7-15.3); LYMPH % 33.5 % (8-40); MCH 27.5 pg (25.7-33.7); MCHC 32.6 g/dl (32.0-36.0); MEAN CELL VOLUME 84.5 fl (80-96); MEAN PLT VOLUME 7.9 fl (7.5-11.1); MONO % 15.6 % (3.8-10.2); NEUT % 45.6 % (42.8-82.8); PLATELET COUNT 288 K/MM3 (134-434); RBC 3.67 M/mm3 (3.60-5.2); RDW 14.5 % (11.6-15.6); WHITE BLOOD COUNT 6.3 K/mm3 (4.0-10.0)
[2019-02-25 06:41] LABS: ALBUMIN 2.6 g/dl (3.4-5.0); BILIRUBIN,TOTAL 0.3 mg/dL (0.2-1); CALCIUM 7.7 mg/dL (8.5-10.1); CREATININE 0.9 mg/dL (0.55-1.3); POTASSIUM 4.1 mmol/L (3.5-5.1); TOT PROT 5.4 g/dl (6.4-8.2)
[2019-02-25 06:55] LABS: INR 0.97 (0.83-1.09); PROTHROMBIN TIME (PATIENT) 11.4 SEC (9.7-13.0)
[2019-02-25] MEDS: LABETALOL HCL 100 MG TABLET (FP) PO SCH ×2 (09:08→21:24)
[2019-02-25] MEDS: MUPIROCIN 2% TOPICAL OINTMENT FOR DECOLONIZATION NS SCH ×2 (09:09→21:57)
--- NOTE | 2019-02-25 09:24 | PN ---
Progress Note, Physician - Current Medication List Current Medications: Active Medications Acetaminophen (Tylenol -) 650 mg PO Q6H PRN PRN Reason: PAIN LEVEL 4-6 Last Admin: 02/24/19 21:25 Dose: 650 mg Chlorhexidine Gluconate (Hibiclens For Decolonization -) 1 applic TP HS MARIAMA Last Admin: 02/24/19 21:17 Dose: 1 applic Heparin Sodium (Porcine) (Heparin -) 5,000 unit SQ TID MARIAMA Last Admin: 02/25/19 05:32 Dose: 5,000 unit Labetalol HCl (Normodyne Injection -) 10 mg IVPUSH Q2H PRN PRN Reason: HYPERTENSION Last Admin: 02/25/19 05:32 Dose: 10 mg Labetalol HCl (Normodyne -) 300 mg PO BID [facility] Last Admin: 02/24/19 21:17 Dose: 300 mg Mupirocin (Bactroban Ointment (For Decolonization) -) 1 applic NS BID [facility] Stop: 02/28/19 09:59 Last Admin: 02/24/19 21:18 Dose: 1 applic - Objective Vital Signs: Vital Signs Temperature 98.1 F 02/25/19 05:00 Pulse Rate 73 02/25/19 08:00 Respiratory Rate 15 02/25/19 08:00 Blood Pressure 156/87 02/25/19 08:00 O2 Sat by Pulse Oximetry (%) 99 02/25/19 00:27 Labs: CBC, BMP 02/25/19 05:25 02/25/19 05:25 INR, PTT INR 0.97 (0.83-1.09) 02/25/19 05:25 Fibrinogen 234.0 mg/dL (238-498) L 02/25/19 05:25
--- NOTE | 2019-02-25 09:25 | CON.CARD ---
Consult Consult Specialty:: Cardiology Referred by:: Hospitalist Medicine Reason for Consultation:: Pre-eclampsia - History of Present Illness Chief Complaint: Orthopnea, LE edema History of Present Illness: Patient is a 33F (C/S x 3, initial C/S secondary to failure to progress) referred by her OBGYN due to concern of pre-eclampsia. Patient gave one week ago and found to have a high blood pressure 180/95 and headache at her follow up appointment with her OBGYN. Patient had history of proteinuria during her last , but no history of HTN. She reported orthopnea, shortness of breath, LE edema since resolved. care complicated by obesity, gestational proteinuria, prior C/sections x 2, maintained on labetalol with improvement of symptoms. 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) Cardio/Vascular: No: AFIB, Aneurysm, Aortic Insufficiency, Aortic Stenosis, CAD , CHF, Deep Vein Thrombosis, HTN, Hyperlipdemia, [place], Mitral Insufficiency, Mitral Stenosis, Murmur, Pulmonary Hypertension, Other Pulmonary: No: Asthma, Bronchitis, Cancer, COPD, O2 Dependent, Pneumonia, Previously Intubated, Pulmonary Embolus, Pulmonary Fibrosis, Sleep Apnea, Other Gastrointestinal: No: Ascites, Cancer, Constipation, Crohn's Disease, Diverticulitis, Diverticulosis, Esophageal Varices, Gastritis, GERD, GI Bleed, Hemorrhoids, Hiatal Hernia, Inflamatory Bowel Disease, Irritable Bowel Disease, Pancreatitis, Peptic Ulcer Disease, Ulcerative Colitis, Other Hepatobiliary: No: Cirrhosis, Cholelithiasis, Cholecystitis, Choledocholithiasis , Hepatitis A, Hepatitis B, Hepatitis C, Other Renal/: No: Renal Failure, Renal Inusuff, BPH, Cancer, Hematuria, Hemodialysis , Neurogenic Bladder, Renal Calculi, UTI, Other ...LMP: 02/19/19 ...LMP Comment: ...: No Infectious Disease: No: AIDS, C-Diff, Herpes Zoster, HIV, MRSA, STD's, Tuberculosis, VREF, Other Psych: No: Addictions, Anxiety, Bipolar, Depression, Panic, Psychosis, Schizophrenia, Other Musculoskeletal: No: Bursitis, Chronic low back pain, Hemiparesis, Hemiplegia, Osteoarthritis, Paraplegia, Other Rheumatology: No: Fibromyalgia, Gout, Lupus, Rheumatoid Arthritis, Sarcoidosis, Vasculitis, Other ENT: No: Allergic Rhinitis, Sinusitis, Other Endocrine: No: Rubén's Disease, Wily's Disease, Diabetes Insipidus, Diabetes Mellitus, Hyperparathyroidism, Hyperthyroidism, Hypothyroidism, Osteopenia, SIADH, Other Dermatology: No: Basal Cell, Cellulitis, Eczema, Melanoma, Psoriasis, Squamous Cell, Other - Past Surgical History Past Surgical History: Yes: (x 3) Additional Surgical History: Abdominoplasty, liposuction - Alcohol/Substance Use Hx Alcohol Use: No History of Substance Use: reports: None - Smoking History Smoking history: Never smoked Have you smoked in the past 12 months: No - Social History Usual Living Arrangement: With Spouse ADL: Independent History of Recent Travel: No Home Medications - Allergies Allergies/Adverse Reactions: Allergies Allergy/AdvReac Type Severity Reaction Status Date / Time No Known Allergies Allergy Verified 02/22/19 13:34 - Home Medications Home Medications: Ambulatory Orders Vitamins (Sjr) - 1 tab PO DAILY 02/15/19 Ibuprofen [Motrin -] 600 mg PO TID #90 tablet 02/18/19 Review of Systems - Review of Systems Cardiovascular: reports: Edema Respiratory: reports: Orthopnea, SOB Vital Signs: Vital Signs Temperature 98.1 F 02/25/19 05:00 Pulse Rate 73 02/25/19 08:00 Respiratory Rate 15 02/25/19 08:00 Blood Pressure 156/87 02/25/19 08:00 O2 Sat by Pulse Oximetry (%) 99 02/25/19 00:27 Constitutional: Yes: No Distress, Calm Neck: Yes: Supple Respiratory: Yes: Regular, CTA Bilaterally Gastrointestinal: Yes: Normal Bowel Sounds, Soft Cardiovascular: Yes: Regular Rate and Rhythm JVD: No Carotid Bruit: No Heart Sounds: Yes: S1, S2 Edema: Yes Edema: LLE: 1+, RLE: 1+ - Other Data Labs, Other Data: CBC, BMP 02/25/19 05:25 02/25/19 05:25 INR, PTT INR 0.97 (0.83-1.09) 02/25/19 05:25 Fibrinogen 234.0 mg/dL (238-498) L 02/25/19 05:25 NSR @ 72 Tele: NSR Imaging - Results Chest X-ray: Report Reviewed (NAD) Problem List - Problems (1) Preeclampsia in period Code(s): O14.95 - UNSPECIFIED PRE-ECLAMPSIA, COMPLICATING THE PUERPERIUM Assessment/Plan 1. Preeclampsia in period 2. Mildly elevated LFTs since resolved 3. Protein to Cr ratio noted. no significant proteinuria P:1. Completed magnesium infusion, started on labetolol and hydralazine with uptitration as tolerated, avoid NSAIDs as you are 2. F/u echocardiogram to assess ventricular and valve fx 3. Thank you for consultative opportunity
[2019-02-25] MEDS: hydrALAZINE HCL 50 MG TABLET (FP) PO SCH ×2 (10:09→21:23)
--- NOTE | 2019-02-25 12:27 | PN ---
Teaching Attending Note Name of Resident: Molly Urena ATTENDING PHYSICIAN STATEMENT I saw and evaluated the patient. I reviewed the resident's note and discussed the case with the resident. I agree with the resident's findings and plan as documented. SUBJECTIVE: No fever or chills. no MAC or CP . She has anxiety about her HTN. OBJECTIVE: NAD Cv: RRR, no MRG Lungs: CTAB Ext: 1+ edema on LE ASSESSMENT AND PLAN: 33 y/o lady with h/o C section 1 week ago, who presented with HTN 1- HTN urgency/pre-Eclampsia: -still need more BP control - cont labetalol at 300 BID . - add HZN 50 BID . safe fro breast feeding . - will advise patient that labetalol at this high dose , can cause bradycardia in infant . caution is advised , and will advise no breast feeding . 2- D/w Heme , low suspicion for HELLP. LFTS improved - Fibrinogen is low due to . monitor 3- Heparin sq
[2019-02-25 12:51] VITALS: BMI 40.0
--- NOTE | 2019-02-25 14:50 | PN ---
Physical Exam: SUBJECTIVE: Patient seen and examined OBJECTIVE: Vital Signs Period Temp Pulse Resp BP Sys/Lyons Pulse Ox Last 24 Hr 98.1 F-98.6 F 65-77 11-20 127-171/87-113 99-99 GENERAL: The patient is awake, alert, and fully oriented, in no acute distress. HEAD: Normal with no signs of trauma. EYES: PERRL, extraocular movements intact, sclera anicteric, conjunctiva clear. No ptosis. ENT: Ears normal, nares patent, oropharynx clear without exudates, moist mucous membranes. NECK: Trachea midline, full range of motion, supple. LUNGS: Breath sounds equal, clear to auscultation bilaterally, no wheezes, no crackles, no accessory muscle use. HEART: Regular rate and rhythm, S1, S2 without murmur, rub or gallop. ABDOMEN: Soft, nontender, nondistended, normoactive bowel sounds, no guarding, no rebound, no hepatosplenomegaly, no masses. EXTREMITIES: 2+ pulses, warm, well-perfused, no edema. NEUROLOGICAL: Cranial nerves II through XII grossly intact. Normal speech, gait not observed. PSYCH: Normal mood, normal affect. SKIN: Warm, dry, normal turgor, no rashes or lesions noted Laboratory Results - last 24 hr 02/25/19 02/25/19 02/25/19 05:25 05:25 05:25 WBC 6.3 RBC 3.67 Hgb 10.1 L Hct 31.0 L MCV 84.5 MCH 27.5 MCHC 32.6 RDW 14.5 Plt Count 288 MPV 7.9 Absolute Neuts (auto) 2.9 Neutrophils % 45.6 Lymphocytes % 33.5 D Monocytes % 15.6 H Eosinophils % 5.1 H Basophils % 0.2 Nucleated RBC % 0 PT with INR INR PTT (Actin FS) 29.5 Fibrinogen 234.0 L Sodium Potassium Chloride Carbon Dioxide Anion Gap BUN Creatinine Est GFR (CKD-EPI)AfAm Est GFR (CKD-EPI)NonAf Random Glucose Calcium Total Bilirubin AST ALT Alkaline Phosphatase LD Total Total Protein Albumin 02/25/19 02/25/19 05:25 05:25 WBC RBC Hgb Hct MCV MCH MCHC RDW Plt Count MPV Absolute Neuts (auto) Neutrophils % Lymphocytes % Monocytes % Eosinophils % Basophils % Nucleated RBC % PT with INR 11.40 INR 0.97 PTT (Actin FS) Fibrinogen Sodium 144 Potassium 4.1 Chloride 113 H Carbon Dioxide 27 Anion Gap 5 L BUN 10.0 Creatinine 0.9 Est GFR (CKD-EPI)AfAm 96.69 Est GFR (CKD-EPI)NonAf 83.42 Random Glucose 77 Calcium 7.7 L Total Bilirubin 0.3 AST 15 ALT 41 Alkaline Phosphatase 68 LD Total 258 H Total Protein 5.4 L Albumin 2.6 L Active Medications Generic Name Dose Route Start Last Admin Trade Name Freq PRN Reason Stop Dose Admin Acetaminophen 650 mg 02/24/19 21:16 02/24/19 21:25 Tylenol - PO 650 mg Q6H PRN Administration PAIN LEVEL 4-6 Chlorhexidine Gluconate 1 applic 02/23/19 22:00 02/24/19 21:17 Hibiclens For Decolonization - TP 1 applic HS MARIAMA Administration Heparin Sodium (Porcine) 5,000 unit 02/23/19 06:00 02/25/19 14:36 Heparin - SQ 5,000 unit TID MARIAMA Administration Hydralazine HCl 50 mg 02/25/19 10:00 02/25/19 10:09 Apresoline - PO 50 mg BID MARIAMA Administration Labetalol HCl 10 mg 02/22/19 20:28 02/25/19 05:32 Normodyne Injection - IVPUSH 10 mg Q2H PRN Administration HYPERTENSION Labetalol HCl 300 mg 02/24/19 09:21 02/25/19 09:08 Normodyne - PO 300 mg BID MARIAMA Administration Mupirocin 1 applic 02/23/19 10:00 02/25/19 09:09 Bactroban Ointment (For Decolonization) - NS 02/28/19 09:59 1 applic BID MARIAMA Administration ASSESSMENT/PLAN: 33 y/o ladyw ith h/o C section 1 week ago, who presented with HTN Pre-Eclampsia increased labetalol to 300 BID due to pr rise in BP diasotlic 117 on monitor Continue to monitor BP s/p 24hr of MgSo4, d/cristiana now as per Ob protein /cr ratio of 0.260, random total protein 13.8 As per Ob, Consider SW consult for VNS BP check at home Elevated LFts LFTs trending down with no RUQ tenderness; LFTS normalized r/o partial HELLP/HELLP syndrome smear negative for hemolysis , hapto pending, and LDH 315. Fibrinogen 234->223, Fibrin degradation products pending,PT/PTT/INR normal Heme consulted DVT heparin sq ATTENDING PHYSICIAN STATEMENT I saw and evaluated the patient. I reviewed the resident's note and discussed the case with the resident. I agree with the resident's findings and plan as documented. SUBJECTIVE: OBJECTIVE: ASSESSMENT AND PLAN:
--- NOTE | 2019-02-25 15:13 | DS ---
Physical Exam: SUBJECTIVE: Patient seen and examined OBJECTIVE: Vital Signs Period Temp Pulse Resp BP Sys/Lyons Pulse Ox Last 24 Hr 98.1 F-98.6 F 65-77 11-19 127-171/87-113 99-99 PHYSICAL EXAM GENERAL: The patient is awake, alert, and fully oriented, in no acute distress. HEAD: Normal with no signs of trauma. EYES: PERRL, extraocular movements intact, sclera anicteric, conjunctiva clear. ENT: Ears normal, nares patent, oropharynx clear without exudates, moist mucous membranes. NECK: Trachea midline, full range of motion, supple. LUNGS: Breath sounds equal, clear to auscultation bilaterally, no wheezes, no crackles, no accessory muscle use. HEART: Regular rate and rhythm, S1, S2 without murmur, rub or gallop. ABDOMEN: Soft, nontender, nondistended, normoactive bowel sounds, no guarding, no rebound, no hepatosplenomegaly, no masses. EXTREMITIES: 2+ pulses, warm, well-perfused, no edema. NEUROLOGICAL: Cranial nerves II through XII grossly intact. Normal speech, gait not observed. PSYCH: Normal mood, normal affect. SKIN: Warm, dry, normal turgor, no rashes or lesions noted. LABS Laboratory Results - last 24 hr 02/25/19 02/25/19 02/25/19 05:25 05:25 05:25 WBC 6.3 RBC 3.67 Hgb 10.1 L Hct 31.0 L MCV 84.5 MCH 27.5 MCHC 32.6 RDW 14.5 Plt Count 288 MPV 7.9 Absolute Neuts (auto) 2.9 Neutrophils % 45.6 Lymphocytes % 33.5 D Monocytes % 15.6 H Eosinophils % 5.1 H Basophils % 0.2 Nucleated RBC % 0 PT with INR INR PTT (Actin FS) 29.5 Fibrinogen 234.0 L Sodium Potassium Chloride Carbon Dioxide Anion Gap BUN Creatinine Est GFR (CKD-EPI)AfAm Est GFR (CKD-EPI)NonAf Random Glucose Calcium Total Bilirubin AST ALT Alkaline Phosphatase LD Total Total Protein Albumin 02/25/19 02/25/19 05:25 05:25 WBC RBC Hgb Hct MCV MCH MCHC RDW Plt Count MPV Absolute Neuts (auto) Neutrophils % Lymphocytes % Monocytes % Eosinophils % Basophils % Nucleated RBC % PT with INR 11.40 INR 0.97 PTT (Actin FS) Fibrinogen Sodium 144 Potassium 4.1 Chloride 113 H Carbon Dioxide 27 Anion Gap 5 L BUN 10.0 Creatinine 0.9 Est GFR (CKD-EPI)AfAm 96.69 Est GFR (CKD-EPI)NonAf 83.42 Random Glucose 77 Calcium 7.7 L Total Bilirubin 0.3 AST 15 ALT 41 Alkaline Phosphatase 68 LD Total 258 H Total Protein 5.4 L Albumin 2.6 L HOSPITAL COURSE: Date of Admission:02/22/19 Date of Discharge: 02/25/19 Discharge Summary Reason For Visit: PRE-ECLAMPSIA, Current Active Problems Preeclampsia in period (Acute) - Instructions - Home Medications Comprehensive Discharge Medication List: Ambulatory Orders Vitamins (r) - 1 tab PO DAILY 02/15/19 Ibuprofen [Motrin -] 600 mg PO TID #90 tablet 02/18/19 - Discharge Referral Referred to [facility] Med P.C.: No ATTENDING PHYSICIAN STATEMENT I saw and evaluated the patient. I reviewed the resident's note and discussed the case with the resident. I agree with the resident's findings and plan as documented. SUBJECTIVE: OBJECTIVE: ASSESSMENT AND PLAN:
--- NOTE | 2019-02-25 15:52 | PN ---
Physical Exam: SUBJECTIVE: Patient seen and examined OBJECTIVE: Vital Signs Period Temp Pulse Resp BP Sys/Lyons Pulse Ox Last 24 Hr 98.1 F-98.3 F 65-77 11-19 127-171/87-113 99-99 GENERAL: The patient is awake, alert, and fully oriented, in no acute distress. HEAD: Normal with no signs of trauma. EYES: PERRL, extraocular movements intact, sclera anicteric, conjunctiva clear. No ptosis. ENT: Ears normal, nares patent, oropharynx clear without exudates, moist mucous membranes. NECK: Trachea midline, full range of motion, supple. LUNGS: Breath sounds equal, clear to auscultation bilaterally, no wheezes, no crackles, no accessory muscle use. HEART: Regular rate and rhythm, S1, S2 without murmur, rub or gallop. ABDOMEN: Soft, nontender, nondistended, normoactive bowel sounds, no guarding, no rebound, no hepatosplenomegaly, no masses. EXTREMITIES: 2+ pulses, warm, well-perfused, no edema. NEUROLOGICAL: Cranial nerves II through XII grossly intact. Normal speech, gait not observed. PSYCH: Normal mood, normal affect. SKIN: Warm, dry, normal turgor, no rashes or lesions noted Laboratory Results - last 24 hr 02/25/19 02/25/19 02/25/19 05:25 05:25 05:25 WBC 6.3 RBC 3.67 Hgb 10.1 L Hct 31.0 L MCV 84.5 MCH 27.5 MCHC 32.6 RDW 14.5 Plt Count 288 MPV 7.9 Absolute Neuts (auto) 2.9 Neutrophils % 45.6 Lymphocytes % 33.5 D Monocytes % 15.6 H Eosinophils % 5.1 H Basophils % 0.2 Nucleated RBC % 0 PT with INR INR PTT (Actin FS) 29.5 Fibrinogen 234.0 L Sodium Potassium Chloride Carbon Dioxide Anion Gap BUN Creatinine Est GFR (CKD-EPI)AfAm Est GFR (CKD-EPI)NonAf Random Glucose Calcium Total Bilirubin AST ALT Alkaline Phosphatase LD Total Total Protein Albumin 02/25/19 02/25/19 05:25 05:25 WBC RBC Hgb Hct MCV MCH MCHC RDW Plt Count MPV Absolute Neuts (auto) Neutrophils % Lymphocytes % Monocytes % Eosinophils % Basophils % Nucleated RBC % PT with INR 11.40 INR 0.97 PTT (Actin FS) Fibrinogen Sodium 144 Potassium 4.1 Chloride 113 H Carbon Dioxide 27 Anion Gap 5 L BUN 10.0 Creatinine 0.9 Est GFR (CKD-EPI)AfAm 96.69 Est GFR (CKD-EPI)NonAf 83.42 Random Glucose 77 Calcium 7.7 L Total Bilirubin 0.3 AST 15 ALT 41 Alkaline Phosphatase 68 LD Total 258 H Total Protein 5.4 L Albumin 2.6 L Active Medications Generic Name Dose Route Start Last Admin Trade Name Freq PRN Reason Stop Dose Admin Acetaminophen 650 mg 02/24/19 21:16 02/24/19 21:25 Tylenol - PO 650 mg Q6H PRN Administration PAIN LEVEL 4-6 Chlorhexidine Gluconate 1 applic 02/23/19 22:00 02/24/19 21:17 Hibiclens For Decolonization - TP 1 applic HS MARIAMA Administration Heparin Sodium (Porcine) 5,000 unit 02/23/19 06:00 02/25/19 14:36 Heparin - SQ 5,000 unit TID MARIAMA Administration Hydralazine HCl 50 mg 02/25/19 10:00 02/25/19 10:09 Apresoline - PO 50 mg BID MARIAMA Administration Labetalol HCl 10 mg 02/22/19 20:28 02/25/19 05:32 Normodyne Injection - IVPUSH 10 mg Q2H PRN Administration HYPERTENSION Labetalol HCl 300 mg 02/24/19 09:21 02/25/19 09:08 Normodyne - PO 300 mg BID MARIAMA Administration Mupirocin 1 applic 02/23/19 10:00 02/25/19 09:09 Bactroban Ointment (For Decolonization) - NS 02/28/19 09:59 1 applic BID MARIAMA Administration ASSESSMENT/PLAN: 33 y/o ladyw ith h/o C section 1 week ago, who presented with HTN Pre-Eclampsia increased labetalol to 300 BID with 10mg IVPsH every 2 hrs due to episodic rise in BP diasotlic 110-120s on monitor Hydralizine 50mg BID added Continue to monitor BP advise patient that labetalol at this high dose , can cause bradycardia in infant. So to stop breast feeding for a while. Elevated LFts LFTs trending down with no RUQ tenderness; LFTS normalized partial HELLP/HELLP syndrome unlikely smear negative for hemolysis , hapto pending, and LDH 315-> 258. Fibrinogen 234->223 ->234 , Fibrin degradation products pending,PT/PTT/INR normal Heme consulted DVT heparin sq Visit type - Emergency Visit Emergency Visit: Yes ED Registration Date: 02/22/19 Care time: The patient presented to the Emergency Department on the above date and was hospitalized for further evaluation of their emergent condition. - New Patient This patient is new to me today: No - Critical Care Critical Care patient: Yes Total Critical Care Time (in minutes): 35 Critical Care Statement: The care of this patient involved high complexity decision making to prevent further life threatening deterioration of the patient 's condition and/or to evaluate & treat vital organ system(s) failure or risk of failure. - Discharge Referral Referred to [facility] Med P.C.: No ATTENDING PHYSICIAN STATEMENT I saw and evaluated the patient. I reviewed the resident's note and discussed the case with the resident. I agree with the resident's findings and plan as documented. SUBJECTIVE: OBJECTIVE: ASSESSMENT AND PLAN:
--- NOTE | 2019-02-25 16:02 | ECHO ---
Name: FARIDA LUNA Exam:Adult Echocardiogram Study Date: 02/25/2019 02:53 PM Age: 33 yrs Reason For Study: PRE ECLAMPSIA Height: 61 in Weight: 212 lb BSA: 1.9 m2 MMode/2D Measurements & Calculations IVSd: 0.94 cm Ao root diam: 2.6 cm LVIDd: 5.2 cm LA dimension: 3.8 cm LVIDs: 3.5 cm LVPWd: 0.82 cm EDV(Teich): 127.3 ml LVOT diam: 2.1 cm ESV(Teich): 50.6 ml Doppler Measurements & Calculations MV E max adán: 78.5 cm/sec Ao V2 max: 158.1 cm/sec MV A max adán: 80.9 cm/sec Ao max P.0 mmHg MV E/A: 0.97 Ao V2 mean: 106.4 cm/sec MV dec time: 0.18 sec Ao mean P.1 mmHg Ao V2 VTI: 31.5 cm MENG(I,D): 2.3 cm2 MENG(V,D): 2.3 cm2 LV V1 max P.0 mmHg MR max adán: 493.6 cm/sec LV V1 mean P.0 mmHg MR max P.4 mmHg LV V1 max: 100.2 cm/sec LV V1 mean: 66.9 cm/sec LV V1 VTI: 20.5 cm SV(LVOT): 73.5 ml TR max adán: 244.6 cm/sec TR max P.0 mmHg PI end-d adán: 103.2 cm/sec Med Peak E' Adán: 9.1 cm/sec Med E/e': 8.6 Lat Peak E' Adán: 10.9 cm/sec Lat E/e': 7.2 Left Ventricle Left ventricular systolic function is normal. Ejection Fraction = 55-60%. Left Ventricular Filling pa ttern is normal for age. Right Ventricle The right ventricle is normal in size and function. Atria Normal left and right atrial size and function. Mitral Valve The mitral valve is normal in structure and function. There is no mitral valve stenosis. There is mil d mitral regurgitation. Tricuspid Valve The tricuspid valve is normal in structure and function. There is mild tricuspid regurgitation. Right ventricular systolic pressure is normal. Aortic Valve The aortic valve opens well. No hemodynamically significant valvular aortic stenosis. No aortic regur gitation is present. Pulmonic Valve The pulmonic valve is not well seen, but is grossly normal. There is no pulmonic valvular stenosis. T race to mild pulmonic valvular regurgitation. Great Vessels The aortic root is normal size. Pericardium/Pleura There is no pericardial effusion. Interpretation Summary Left ventricular systolic function is normal. Ejection Fraction = 55-60%. The right ventricle is normal in size and function. There is mild mitral regurgitation. There is mild tricuspid regurgitation. Right ventricular systolic pressure is normal. The aortic root is normal size. There is no pericardial effusion. MD Sosa *Vic 02/25/2019 04:02 PM
[2019-02-25] MEDS ORDERED: LABETALOL HCL 5 MG/1 ML (100MG/20 ML VIAL) IVPUSH PRN (19:10)
--- NOTE | 2019-02-25 20:21 | PN ---
Progress Note (short form) - Note Progress Note: PAtient seen and examined Feels better AFVSS Cor: RSR, No murmurs, No gallops Lungs: Clear to P&A Abd: Soft, Normal bowel sounds, No organomegaly Ext:No significant edema Labs/Meds reviewed A/P 33 y/o patient is s/p repeat delivery on 02/15/2019 who presents with headache and BP 180/95, in the setting of generalized edema. She was dx'd with pre-eclampsia. care complicated by obesity, gestational proteinuria, prior C/sections x 2 Preeclampsia, post Hemoglobin stable-- unlikely hemolysis LDH mildly elevated, trending down. Haptoglobin pending. LFTs normalized --ALT mildly elevated; now normal platelets normal smear shows rare schistocytes fibrinogen --mildly low --234 -- usually elevated fibrinogen leel. Pt/ PTT--normal. will monitor 1+ protein in the urine echo normal will follow clinical course
[2019-02-25] MEDS: CHLORHEXIDINE GLUCONATE 4% CLEANSER FOR DECOLONIZATION TP SCH (21:24)
[2019-02-26] MEDS: HEPARIN NA (PORCINE) 5,000 UNITS/ML 1ML VIAL SQ SCH ×3 (05:33→21:04)
[2019-02-26 06:13] LABS: BASO % 0.3 % (0-2.0); EOS % 5.2 % (0-4.5); HEMATOCRIT 32.2 % (32.4-45.2); HEMOGLOBIN 10.5 GM/dL (10.7-15.3); LYMPH % 29.5 % (8-40); MCH 27.5 pg (25.7-33.7); MCHC 32.8 g/dl (32.0-36.0); MEAN CELL VOLUME 84.1 fl (80-96); MEAN PLT VOLUME 7.9 fl (7.5-11.1); PLATELET COUNT 310 K/MM3 (134-434); RBC 3.82 M/mm3 (3.60-5.2); RDW 14.4 % (11.6-15.6); WHITE BLOOD COUNT 6.4 K/mm3 (4.0-10.0)
[2019-02-26 07:00] LABS: ALBUMIN 2.8 g/dl (3.4-5.0); BILIRUBIN,TOTAL 0.4 mg/dL (0.2-1); BLOOD UREA NITROGEN 9.7 mg/dL (7-18); CREATININE 0.9 mg/dL (0.55-1.3); POTASSIUM 4.2 mmol/L (3.5-5.1); TOT PROT 5.6 g/dl (6.4-8.2)
[2019-02-26] MEDS ORDERED: hydrALAZINE HCL 20 MG/ML VIAL IVPUSH PRN (09:15)
[2019-02-26] MEDS: NIFEdipine E.R 60 MG TABLET (UD) PO SCH (09:18)
--- NOTE | 2019-02-26 09:18 | PN ---
Post Progress Note - Subjective Subjective: Patient without acute complaints. Reports no MAC, no visual changes and no RUQ pain Reports tolerating oral intake without nausea or vomiting. Ambulating without dizziness. Denies fevers or chills. Pain well controlled with oral pain medication. Pumping breast without difficulty. Passing flatus. Post Day: 11 Type of Delivery: Repeat C/S Vital Signs: Vital Signs Temperature 98.2 F 02/26/19 06:00 Pulse Rate 80 02/26/19 06:00 Respiratory Rate 16 02/26/19 06:00 Blood Pressure 150/92 02/26/19 06:00 O2 Sat by Pulse Oximetry (%) 99 02/25/19 20:56 Breast Exam: Yes: Soft Uterus: Yes: Fundus Firm Incision: Yes: Dressing dry and intact Abdomen/GI: Yes: Abdomen soft Extremities: Yes: Calves non-tender Activity: Other (in bed, but walks to the bathroom) - Labs Labs: CBC WBC 6.4 K/mm3 (4.0-10.0) 02/26/19 05:30 RBC 3.82 M/mm3 (3.60-5.2) 02/26/19 05:30 Hgb 10.5 GM/dL (10.7-15.3) L 02/26/19 05:30 Hct 32.2 % (32.4-45.2) L 02/26/19 05:30 MCV 84.1 fl (80-96) 02/26/19 05:30 MCH 27.5 pg (25.7-33.7) 02/26/19 05:30 MCHC 32.8 g/dl (32.0-36.0) 02/26/19 05:30 RDW 14.4 % (11.6-15.6) 02/26/19 05:30 Plt Count 310 K/MM3 (134-434) 02/26/19 05:30 MPV 7.9 fl (7.5-11.1) 02/26/19 05:30 Absolute Neuts (auto) 3.3 K/mm3 (1.5-8.0) 02/26/19 05:30 Neutrophils % 52.0 % (42.8-82.8) 02/26/19 05:30 Neutrophils % (Manual) 62.0 % (42.8-82.8) 02/24/19 06:10 Band Neutrophils % 1.0 % 02/24/19 06:10 Lymphocytes % 29.5 % (8-40) 02/26/19 05:30 Lymphocytes % (Manual) 25.0 % (8-40) 02/24/19 06:10 Monocytes % 13.0 % (3.8-10.2) H 02/26/19 05:30 Monocytes % (Manual) 8 % (3.8-10.2) 02/24/19 06:10 Eosinophils % 5.2 % (0-4.5) H 02/26/19 05:30 Eosinophils % (Manual) 1.0 % (0-4.5) 02/24/19 06:10 Basophils % 0.3 % (0-2.0) 02/26/19 05:30 Basophils % (Manual) 0.0 % (0-2.0) 02/24/19 06:10 Myelocytes % (Man) 0 % (0-2) 02/24/19 06:10 Promyelocytes % (Man) 0 % (0-2) 02/24/19 06:10 Blast Cells % (Manual) 0 % (0-0) 02/24/19 06:10 Nucleated RBC % 0 % (0-0) 02/26/19 05:30 Metamyelocytes 2 % (0-2) 02/24/19 06:10 Hypochromia 1+ 02/24/19 06:10 Platelet Estimate Normal 02/24/19 06:10 Platelet Comment Present 02/24/19 06:10 Polychromasia 1+ 02/24/19 06:10 Poikilocytosis 1+ 02/24/19 06:10 Anisocytosis 2+ 02/24/19 06:10 Microcytosis 1+ 02/24/19 06:10 Macrocytosis 0 02/24/19 06:10 Target Cells 1+ 02/24/19 06:10 Tear Drop Cells 1+ 02/24/19 06:10 Ovalocytes 1+ 02/24/19 06:10 Acanthocytes (Spur) 1+ 02/24/19 06:10 Haptoglobin 152 mg/dL (34-200) 02/23/19 17:00 Assessment/Plan 33yo P3 now POD # 11 s/p repeat c/section readmited with Post preeclampsia, now s/p 24hr current BPs are still labile range from 130-170/70-100 Agree with changing to Procardia 60XL Hydralzine PRN for BP over 140/90 Discussed with patient need to control anxiety, offered low doze of Zoloft She is deciding
[2019-02-26] MEDS: MUPIROCIN 2% TOPICAL OINTMENT FOR DECOLONIZATION NS SCH ×2 (09:20→21:04)
--- NOTE | 2019-02-26 09:34 | PN ---
Physical Exam: SUBJECTIVE: Patient seen and examined OBJECTIVE: Vital Signs Period Temp Pulse Resp BP Sys/Lyons Pulse Ox Last 24 Hr 98.1 F-98.4 F 71-84 12-19 134-170/74-98 99 GENERAL: The patient is awake, alert, and fully oriented, in no acute distress. HEAD: Normal with no signs of trauma. EYES: PERRL, extraocular movements intact, sclera anicteric, conjunctiva clear. No ptosis. ENT: Ears normal, nares patent, oropharynx clear without exudates, moist mucous membranes. NECK: Trachea midline, full range of motion, supple. LUNGS: Breath sounds equal, clear to auscultation bilaterally, no wheezes, no crackles, no accessory muscle use. HEART: Regular rate and rhythm, S1, S2 without murmur, rub or gallop. ABDOMEN: Soft, nontender, nondistended, normoactive bowel sounds, no guarding, no rebound, no hepatosplenomegaly, no masses. EXTREMITIES: 2+ pulses, warm, well-perfused, no edema. NEUROLOGICAL: Cranial nerves II through XII grossly intact. Normal speech, gait not observed. PSYCH: Normal mood, normal affect. SKIN: Warm, dry, normal turgor, no rashes or lesions noted Laboratory Results - last 24 hr 02/23/19 02/26/19 02/26/19 17:00 05:30 05:30 WBC 6.4 RBC 3.82 Hgb 10.5 L Hct 32.2 L MCV 84.1 MCH 27.5 MCHC 32.8 RDW 14.4 Plt Count 310 MPV 7.9 Absolute Neuts (auto) 3.3 Neutrophils % 52.0 Lymphocytes % 29.5 Monocytes % 13.0 H Eosinophils % 5.2 H Basophils % 0.3 Nucleated RBC % 0 Haptoglobin 152 Sodium 145 Potassium 4.2 Chloride 112 H Carbon Dioxide 25 Anion Gap 8 BUN 9.7 Creatinine 0.9 Est GFR (CKD-EPI)AfAm 96.69 Est GFR (CKD-EPI)NonAf 83.42 Random Glucose 78 Calcium 8.0 L Iron 46 L TIBC 264 Iron Saturation 17 L Unsaturated IBC 218 Ferritin 88.3 Total Bilirubin 0.4 AST 23 ALT 42 Alkaline Phosphatase 69 Total Protein 5.6 L Albumin 2.8 L Active Medications Generic Name Dose Route Start Last Admin Trade Name Freq PRN Reason Stop Dose Admin Acetaminophen 650 mg 02/24/19 21:16 02/24/19 21:25 Tylenol - PO 650 mg Q6H PRN Administration PAIN LEVEL 4-6 Chlorhexidine Gluconate 1 applic 02/25/19 22:00 02/25/19 21:24 Hibiclens For Decolonization - TP 1 applic HS MARIAMA Administration Heparin Sodium (Porcine) 5,000 unit 02/25/19 22:00 02/26/19 05:33 Heparin - SQ 5,000 unit TID MARIAMA Administration Hydralazine HCl 10 mg 02/26/19 09:15 Apresoline Injection - IVPUSH Q8H PRN HYPERTENSION Labetalol HCl 10 mg 02/25/19 19:10 Normodyne Injection - IVPUSH Q2H PRN HYPERTENSION Mupirocin 1 applic 02/25/19 22:00 02/26/19 09:20 Bactroban Ointment (For Decolonization) - NS 02/28/19 09:59 1 applic BID MARIAMA Administration Nifedipine 60 mg 02/26/19 10:00 02/26/19 09:18 Procardia Xl - PO 60 mg DAILY MARIAMA Administration ASSESSMENT/PLAN: 33 y/o ladyw ith h/o C section 1 week ago, who presented with HTN Pre-Eclampsia BP regimen changed to Procardia 60mg PO daily Hydralzine PRN for BP over 140/90 Continue to monitor BP advise patient that labetalol at this high dose , can cause bradycardia in . So to stop breast feeding for a few days to clear it out of breastmilk Elevated LFts LFTs trending down with no RUQ tenderness; LFTS normalized Unlikely HELLP, platelet normal, no hemolysis on smear, Hapto 152, PT/INR normal, fibrin 234, fibrin degradation pending Anemia iron 46, TIBC 264, Fe Sat 17, Unsat IBC 218, Ferritin 88.3 DVT heparin sq Visit type - Emergency Visit Emergency Visit: Yes ED Registration Date: 02/22/19 Care time: The patient presented to the Emergency Department on the above date and was hospitalized for further evaluation of their emergent condition. - New Patient This patient is new to me today: No - Critical Care Critical Care patient: Yes Total Critical Care Time (in minutes): 35 Critical Care Statement: The care of this patient involved high complexity decision making to prevent further life threatening deterioration of the patient 's condition and/or to evaluate & treat vital organ system(s) failure or risk of failure. - Discharge Referral Referred to [facility] Med P.C.: No ATTENDING PHYSICIAN STATEMENT I saw and evaluated the patient. I reviewed the resident's note and discussed the case with the resident. I agree with the resident's findings and plan as documented. SUBJECTIVE: OBJECTIVE: ASSESSMENT AND PLAN:
--- NOTE | 2019-02-26 09:56 | PN ---
Teaching Attending Note Name of Resident: Johanne Rooney ATTENDING PHYSICIAN STATEMENT I saw and evaluated the patient. I reviewed the resident's note and discussed the case with the resident. I agree with the resident's findings and plan as documented. SUBJECTIVE: No fever or chills. has abd pain, which is new and different than before. no N /V , no SOB or CP , no MAC . OBJECTIVE: NAD Cv: RRR, no MRG Lungs: CTAB ABd : soft, TTP in suprapubic area and RLQ, and LLQ. NL BS . NO rebound tenderness or guarding. CS wound clean and healing Ext: 1+ edema on LE ASSESSMENT AND PLAN: 33 y/o lady with h/o C section 1 week ago, who presented with HTN 1- HTN urgency/pre-Eclampsia: - change labetalol to Procardia 60 mg daily ( safe for breast feeding ) - make HZN PRN , and if needed can titrate procardia up to 90 mg daily - anxiety is playing a big role. pt is deciding on SSRIs - case d/w with Dr. Mendoza 2- Monitor Coags , and fibrinogen. low suspicion for hemolysis as HApto is NL. no signs of DIC as PT/PTT are normal . follow FDP 3- Worsening lower abd pain: no red flags . - check UA , r/o UTI - check Bladder scan , r/o urinary retention Heparin sq HLOC.
--- NOTE | 2019-02-26 11:22 | PN ---
Progress Note, Physician Chief Complaint: Pt AxOx3; no chest pain or dyspnea; had "sharp" brief headache overnight. History of Present Illness: pt presents to the ED after sent in by Dr. Marsh for elevated blood pressure. Patient is one week post and had proteinuria during the but not elevated BP. complains of mild headache. Denies nausea, vomiting, visual changes, fever, or abdominal pain that is different from pain that she's had with prior C sections. - - Current Medication List Current Medications: Active Medications Acetaminophen (Tylenol -) 650 mg PO Q6H PRN PRN Reason: PAIN LEVEL 4-6 Last Admin: 02/24/19 21:25 Dose: 650 mg Chlorhexidine Gluconate (Hibiclens For Decolonization -) 1 applic TP HS [facility] Last Admin: 02/25/19 21:24 Dose: 1 applic Heparin Sodium (Porcine) (Heparin -) 5,000 unit SQ TID [facility] Last Admin: 02/26/19 05:33 Dose: 5,000 unit Hydralazine HCl (Apresoline Injection -) 10 mg IVPUSH Q8H PRN PRN Reason: HYPERTENSION Labetalol HCl (Normodyne Injection -) 10 mg IVPUSH Q2H PRN PRN Reason: HYPERTENSION Mupirocin (Bactroban Ointment (For Decolonization) -) 1 applic NS BID [facility] Stop: 02/28/19 09:59 Last Admin: 02/26/19 09:20 Dose: 1 applic Nifedipine (Procardia Xl -) 60 mg PO DAILY [facility] Last Admin: 02/26/19 09:18 Dose: 60 mg - Objective Vital Signs: Vital Signs Temperature 98.2 F 02/26/19 06:00 Pulse Rate 80 02/26/19 06:00 Respiratory Rate 16 02/26/19 06:00 Blood Pressure 150/92 02/26/19 06:00 O2 Sat by Pulse Oximetry (%) 99 02/25/19 20:56 Constitutional: Yes: Anxious Eyes: Yes: WNL Labs: CBC, BMP 02/26/19 05:30 02/26/19 05:30 INR, PTT INR 0.97 (0.83-1.09) 02/25/19 05:25 Fibrinogen 234.0 mg/dL (238-498) L 02/25/19 05:25 Problem List - Problems (1) Preeclampsia in period Assessment/Plan: Pt on nifedinine ER 60 mg daily starting today (labetolol d/cristiana by ob dur to pt wanting to breast feed). ECHO: normal LVEF; normal chamber sizes and wall thicknesses; mild MR and TR. Code(s): O14.95 - UNSPECIFIED PRE-ECLAMPSIA, COMPLICATING THE PUERPERIUM (2) Overweight Assessment/Plan: HTN runs in the family. Pt was encouraged to follow a heart-healthy diet and exercise regularly. Code(s): E66.3 - OVERWEIGHT
[2019-02-26 11:27] LABS: EPI CELLS 2.7 /HPF (0-5/HPF); HYALINE CASTS 8 /lpf (0-8); PH,URINE 7.5 (5.0-8.0); URINE APPEARANCE CLOUDY; URINE BACTERIA 265.9 /hpf (NEGATIVE); URINE BILIRUBIN NEGATIVE (NEGATIVE); URINE COLOR YELLOW; URINE GLUCOSE (UA) NEGATIVE (NEGATIVE); URINE KETONE NEGATIVE (NEGATIVE); URINE LEUK ESTERASE 2+ (NEGATIVE); URINE NITRITE NEGATIVE (NEGATIVE); URINE PROTEIN NEGATIVE (NEGATIVE); URINE UROBILINOGEN 0.2 mg/dL (0.2-1.0); URINE WBC 28 /hpf (0-5)
[2019-02-26 12:44] LABS: URINE RBC 12.8 /hpf (0-4)
[2019-02-26] MEDS ORDERED: cefTRIAXone SODIUM 1 GM VIAL ONE (15:23)
[2019-02-26] MEDS ORDERED: DEXTROSE 5%-WATER - 50 ML IVPB ONE (15:23)
[2019-02-26] MEDS: ACETAMINOPHEN 325 MG TABLET (FP) PO PRN (15:26)
[2019-02-26] MEDS: CEFTRIAXONE 1 GM in DEXTROSE 5%-WATER - 50 ML IVPB SCH (15:27)
--- NOTE | 2019-02-26 19:51 | PN ---
Progress Note (short form) - Note Progress Note: Patient seen and examined. Voices no complaints. BP control improved now. Feels better ROS: 14 point elicited in detail and negative or as per above Last Vital Signs Temp Pulse Resp BP Pulse Ox 98.3 F 84 18 120/81 100 02/26/19 15:00 02/26/19 18:00 02/26/19 18:00 02/26/19 18:00 02/26/19 09:00 HEENT: MMM Cor: RSR, No murmurs, No gallops Lungs: Clear to P&A Abd: Soft, Normal bowel sounds, No organomegaly Ext: No significant edema Neuro: moves all extremities Psych: conversant, appropriate. 02/26/19 05:30 02/26/19 05:30 Current Medications Acetaminophen (Tylenol -) 650 mg PO Q6H PRN PRN Reason: PAIN LEVEL 4-6 Last Admin: 02/26/19 15:26 Dose: 650 mg Chlorhexidine Gluconate (Hibiclens For Decolonization -) 1 applic TP HS [facility] Last Admin: 02/25/19 21:24 Dose: 1 applic Heparin Sodium (Porcine) (Heparin -) 5,000 unit SQ TID [facility] Last Admin: 02/26/19 16:49 Dose: 5,000 unit Hydralazine HCl (Apresoline Injection -) 10 mg IVPUSH Q8H PRN PRN Reason: HYPERTENSION Ceftriaxone Sodium 1 gm/ (Dextrose) 50 mls @ 100 mls/hr IVPB DAILY [facility]; Protocol Last Admin: 02/26/19 15:27 Dose: 100 mls/hr Mupirocin (Bactroban Ointment (For Decolonization) -) 1 applic NS BID [facility] Stop: 02/28/19 09:59 Last Admin: 02/26/19 09:20 Dose: 1 applic Nifedipine (Procardia Xl -) 60 mg PO DAILY [facility] Last Admin: 02/26/19 09:18 Dose: 60 mg A/P 33 y/o lady is s/p repeat delivery on 02/15/2019 who presented with headache and BP 180/95, in the setting of generalized edema. She was dx'd with pre-eclampsia. care complicated by obesity, gestational proteinuria, prior C/sections x 2. Blood pressure control improving with current regimen (Nifedipine 60 mg po daily) with values in the 120's/80's Preeclampsia, post Hemoglobin stable, trending up-- unlikely hemolysis LDH mildly elevated, trending down. Haptoglobin pending. LFTs normalized --ALT mildly elevated; now normal platelets normal smear shows rare schistocytes fibrinogen --mildly low --234 -- usually elevated fibrinogen level. Pt /PTT--normal. will monitor Awaiting FDP products 1+ protein in the urine echo normal Hematologic parameters stable/improving. will follow clinical course
[2019-02-26] MEDS: CHLORHEXIDINE GLUCONATE 4% CLEANSER FOR DECOLONIZATION TP SCH (21:04)
[2019-02-27] MEDS: ACETAMINOPHEN 325 MG TABLET (FP) PO PRN (05:48)
[2019-02-27] MEDS: HEPARIN NA (PORCINE) 5,000 UNITS/ML 1ML VIAL SQ SCH ×2 (05:50→13:46)
[2019-02-27 06:12] LABS: BASO % 0.6 % (0-2.0); EOS % 5.3 % (0-4.5); HEMOGLOBIN 11.3 GM/dL (10.7-15.3); MCH 27.4 pg (25.7-33.7); MCHC 32.5 g/dl (32.0-36.0); MEAN CELL VOLUME 84.4 fl (80-96); MEAN PLT VOLUME 8.4 fl (7.5-11.1); MONO % 11.2 % (3.8-10.2); NEUT % 52.9 % (42.8-82.8); PLATELET COUNT 287 K/MM3 (134-434); RBC 4.14 M/mm3 (3.60-5.2); RDW 14.8 % (11.6-15.6)
[2019-02-27 06:43] LABS: BILIRUBIN,TOTAL 0.5 mg/dL (0.2-1); BLOOD UREA NITROGEN 11.5 mg/dL (7-18); CALCIUM 8.7 mg/dL (8.5-10.1); CREATININE 0.9 mg/dL (0.55-1.3); POTASSIUM 4.4 mmol/L (3.5-5.1); TOT PROT 6.2 g/dl (6.4-8.2)
[2019-02-27] MEDS ORDERED: cefTRIAXone SODIUM 1 GM VIAL ONE (08:30)
[2019-02-27] MEDS ORDERED: DEXTROSE 5%-WATER - 50 ML IVPB ONE (08:30)
[2019-02-27] MEDS: CEFTRIAXONE 1 GM in DEXTROSE 5%-WATER - 50 ML IVPB SCH (09:28)
[2019-02-27] MEDS: MUPIROCIN 2% TOPICAL OINTMENT FOR DECOLONIZATION NS SCH (09:29)
--- NOTE | 2019-02-27 09:32 | PN ---
Progress Note (short form) - Note Progress Note: Subjective: no fever or chills. abd pain is better. had rectal pain with defecation today but no bleeding reports external hemorrhoids during Objective: Vital Signs: Last Vital Signs Temp Pulse Resp BP Pulse Ox 98.5 F 99 H 16 167/97 100 02/27/19 06:00 02/27/19 06:00 02/27/19 06:00 02/27/19 06:00 02/26/19 20:21 Laboratory Results - last 24 hr 02/26/19 02/27/19 02/27/19 10:45 05:13 05:13 WBC 7.0 RBC 4.14 Hgb 11.3 Hct 35.0 MCV 84.4 MCH 27.4 MCHC 32.5 RDW 14.8 Plt Count 287 MPV 8.4 Absolute Neuts (auto) 3.7 Neutrophils % 52.9 Lymphocytes % 30.0 Monocytes % 11.2 H Eosinophils % 5.3 H Basophils % 0.6 Nucleated RBC % 0 Fibrinogen 274.0 Sodium Potassium Chloride Carbon Dioxide Anion Gap BUN Creatinine Est GFR (CKD-EPI)AfAm Est GFR (CKD-EPI)NonAf Random Glucose Calcium Total Bilirubin AST ALT Alkaline Phosphatase Total Protein Albumin Urine Color Yellow Urine Appearance Cloudy Urine pH 7.5 D Ur Specific Fowler 1.008 L Urine Protein Negative Urine Glucose (UA) Negative Urine Ketones Negative Urine Blood 3+ H Urine Nitrite Negative Urine Bilirubin Negative Urine Urobilinogen 0.2 Ur Leukocyte Esterase 2+ H Urine WBC (Auto) 28 Urine RBC (Auto) 12.8 Urine Casts (Auto) 8 U Epithel Cells (Auto) 2.7 Urine Bacteria (Auto) 265.9 02/27/19 05:13 WBC RBC Hgb Hct MCV MCH MCHC RDW Plt Count MPV Absolute Neuts (auto) Neutrophils % Lymphocytes % Monocytes % Eosinophils % Basophils % Nucleated RBC % Fibrinogen Sodium 141 Potassium 4.4 Chloride 109 H Carbon Dioxide 25 Anion Gap 6 L BUN 11.5 Creatinine 0.9 Est GFR (CKD-EPI)AfAm 96.69 Est GFR (CKD-EPI)NonAf 83.42 Random Glucose 76 Calcium 8.7 Total Bilirubin 0.5 AST 23 ALT 39 Alkaline Phosphatase 71 Total Protein 6.2 L Albumin 3.0 L Urine Color Urine Appearance Urine pH Ur Specific Fowler Urine Protein Urine Glucose (UA) Urine Ketones Urine Blood Urine Nitrite Urine Bilirubin Urine Urobilinogen Ur Leukocyte Esterase Urine WBC (Auto) Urine RBC (Auto) Urine Casts (Auto) U Epithel Cells (Auto) Urine Bacteria (Auto) Physical Exam: NAD Cv: RRR, no MRG Lungs: CTAB ABd : soft, TTP in suprapubic area . NL BS . NO rebound tenderness or guarding. CS wound clean and healing Ext: No edema REctal: external hemorrhoids, tender , not bleeding ASSESSMENT AND PLAN: 33 y/o lady with h/o C section 1 week ago, who presented with HTN 1- HTN urgency/pre-Eclampsia: - cont procardia at this dose. BP in 120s, 130s all day yesterday, just early this am 160s. dose can be titrated as out pt , unless later today BP increases - check bp daily after dc with close f/u with her PCP and [facility] - low salt diet , and exercise - LFTs normalized and coags normalized . 2- Worsening lower abd pain:improved today. - bladder scan with no retention . UA with pyuria, U cx pendig - cont ceftriaxone for now, if ucx neg will dc otherwise will narrow Abx 3- Anxiety : declined zoloft. advised to follow with psychotherapy, and consider meds in future if anxiety cont to be a problem Dispo : Possible dc home later today pending urine cx Visit type - Emergency Visit Emergency Visit: Yes ED Registration Date: 02/22/19 Care time: The patient presented to the Emergency Department on the above date and was hospitalized for further evaluation of their emergent condition. - New Patient This patient is new to me today: No - Critical Care Critical Care patient: No
[2019-02-27] MEDS: NIFEdipine E.R 60 MG TABLET (UD) PO SCH (09:45)
[2019-02-27] MEDS ORDERED: HYDROCORTISONE 2.5% TOPICAL CREAM 30 GM TUBE TP SCH (10:00)
--- NOTE | 2019-02-27 15:15 | PN ---
Progress Note (short form) - Note Progress Note: Patient seen and examined. BP control improved now. Feels better, denied bleeding. ROS: 14 point elicited in detail and negative or as per above Last Vital Signs Temp Pulse Resp BP Pulse Ox 98.5 F 76 72 H 140/83 100 02/27/19 06:00 02/27/19 10:00 02/27/19 10:00 02/27/19 10:00 02/27/19 09:00 HEENT: MMM Cor: RSR, No murmurs, No gallops Lungs: Clear to P&A Abd: Soft, Normal bowel sounds, No organomegaly Ext: No significant edema Neuro: moves all extremities Psych: conversant, appropriate. 02/27/19 05:13 02/27/19 05:13 Current Medications Acetaminophen (Tylenol -) 650 mg PO Q6H PRN PRN Reason: PAIN LEVEL 4-6 Last Admin: 02/27/19 05:48 Dose: 650 mg Chlorhexidine Gluconate (Hibiclens For Decolonization -) 1 applic TP HS [facility] Last Admin: 02/26/19 21:04 Dose: 1 applic Heparin Sodium (Porcine) (Heparin -) 5,000 unit SQ TID [facility] Last Admin: 02/27/19 13:46 Dose: 5,000 unit Hydralazine HCl (Apresoline Injection -) 10 mg IVPUSH Q8H PRN PRN Reason: HYPERTENSION Last Admin: 02/27/19 05:50 Dose: 10 mg Hydrocortisone (Anusol 2.5% Hc Cream -) 1 applic TP BID [facility] Last Admin: 02/27/19 09:29 Dose: 1 applic Ceftriaxone Sodium 1 gm/ (Dextrose) 50 mls @ 100 mls/hr IVPB DAILY [facility]; Protocol Last Admin: 02/27/19 09:28 Dose: 100 mls/hr Mupirocin (Bactroban Ointment (For Decolonization) -) 1 applic NS BID [facility] Stop: 02/28/19 09:59 Last Admin: 02/27/19 09:29 Dose: 1 applic Nifedipine (Procardia Xl -) 60 mg PO DAILY [facility] Last Admin: 02/27/19 09:45 Dose: 60 mg A/P 33 y/o lady is s/p repeat delivery on 02/15/2019 who presented with headache and BP 180/95, in the setting of generalized edema. She was dx'd with pre-eclampsia. care complicated by obesity, gestational proteinuria, prior C/sections x 2. Blood pressure control improving with current regimen (Nifedipine 60 mg po daily) with values in the 120's/80's Preeclampsia, post Hemoglobin normalized. No evidence of hemolysis LDH mildly elevated, trending down. Haptoglobin normal LFTs normalized platelets normal smear showed previously rare schistocytes fibrinogen 274. PT/INR wnl Awaiting FDP products 1+ protein in the urine echo normal Hematologic parameters stable/improving. will follow clinical course. if discharged, PCP/Ob follow-up vs hematology follow-up as needed.
[2019-02-27 17:39] VITALS: TEMP 98
[2019-02-27 19:46] VITALS: BP 113/66; PULSE 87
[2019-02-27] MEDS ORDERED: HYDROCORTISONE 2.5% TOPICAL CREAM 30 GM TUBE PR SCH (22:00)
--- NOTE | 2019-02-28 20:45 | DS ---
Physical Exam: SUBJECTIVE: Patient seen and examined OBJECTIVE: Last Vital Signs Temp Pulse Resp BP Pulse Ox 98.0 F 87 24 H 113/66 100 02/27/19 15:00 02/27/19 18:00 02/27/19 18:00 02/27/19 18:00 02/27/19 09:00 PHYSICAL EXAM GENERAL: The patient is awake, alert, and fully oriented, in no acute distress. HEAD: Normal with no signs of trauma. EYES: PERRL, extraocular movements intact, sclera anicteric, conjunctiva clear. No ptosis. ENT: Ears normal, nares patent, oropharynx clear without exudates, moist mucous membranes. LUNGS: Breath sounds equal, clear to auscultation bilaterally, no wheezes, no crackles, no accessory muscle use. HEART: Regular rate and rhythm, S1, S2 without murmur, rub or gallop. ABDOMEN: Soft, mild tenderness at C section site, nondistended, normoactive bowel sounds, no guarding, no rebound, no hepatosplenomegaly, no masses. EXTREMITIES: 2+ pulses, warm, well-perfused, no edema. NEUROLOGICAL: Cranial nerves II through XII grossly intact. Normal speech, gait not observed. PSYCH: Normal mood, normal affect. SKIN: Warm, dry, normal turgor, no rashes or lesions noted LABS CBC,CMP WBC 7.0 K/mm3 (4.0-10.0) 02/27/19 05:13 RBC 4.14 M/mm3 (3.60-5.2) 02/27/19 05:13 Hgb 11.3 GM/dL (10.7-15.3) 02/27/19 05:13 Hct 35.0 % (32.4-45.2) 02/27/19 05:13 MCV 84.4 fl (80-96) 02/27/19 05:13 MCH 27.4 pg (25.7-33.7) 02/27/19 05:13 MCHC 32.5 g/dl (32.0-36.0) 02/27/19 05:13 RDW 14.8 % (11.6-15.6) 02/27/19 05:13 Plt Count 287 K/MM3 (134-434) 02/27/19 05:13 MPV 8.4 fl (7.5-11.1) 02/27/19 05:13 Absolute Neuts (auto) 3.7 K/mm3 (1.5-8.0) 02/27/19 05:13 Neutrophils % 52.9 % (42.8-82.8) 02/27/19 05:13 Neutrophils % (Manual) 62.0 % (42.8-82.8) 02/24/19 06:10 Band Neutrophils % 1.0 % 02/24/19 06:10 Lymphocytes % 30.0 % (8-40) 02/27/19 05:13 Lymphocytes % (Manual) 25.0 % (8-40) 02/24/19 06:10 Monocytes % 11.2 % (3.8-10.2) H 02/27/19 05:13 Monocytes % (Manual) 8 % (3.8-10.2) 02/24/19 06:10 Eosinophils % 5.3 % (0-4.5) H 02/27/19 05:13 Eosinophils % (Manual) 1.0 % (0-4.5) 02/24/19 06:10 Basophils % 0.6 % (0-2.0) 02/27/19 05:13 Basophils % (Manual) 0.0 % (0-2.0) 02/24/19 06:10 Myelocytes % (Man) 0 % (0-2) 02/24/19 06:10 Promyelocytes % (Man) 0 % (0-2) 02/24/19 06:10 Blast Cells % (Manual) 0 % (0-0) 02/24/19 06:10 Nucleated RBC % 0 % (0-0) 02/27/19 05:13 Metamyelocytes 2 % (0-2) 02/24/19 06:10 Hypochromia 1+ 02/24/19 06:10 Platelet Estimate Normal 02/24/19 06:10 Platelet Comment Present 02/24/19 06:10 Polychromasia 1+ 02/24/19 06:10 Poikilocytosis 1+ 02/24/19 06:10 Anisocytosis 2+ 02/24/19 06:10 Microcytosis 1+ 02/24/19 06:10 Macrocytosis 0 02/24/19 06:10 Target Cells 1+ 02/24/19 06:10 Tear Drop Cells 1+ 02/24/19 06:10 Ovalocytes 1+ 02/24/19 06:10 Acanthocytes (Spur) 1+ 02/24/19 06:10 Haptoglobin 152 mg/dL (34-200) 02/23/19 17:00 Sodium 141 mmol/L (136-145) 02/27/19 05:13 Potassium 4.4 mmol/L (3.5-5.1) 02/27/19 05:13 Chloride 109 mmol/L (98-107) H 02/27/19 05:13 Carbon Dioxide 25 mmol/L (21-32) 02/27/19 05:13 Anion Gap 6 MMOL/L (8-16) L 02/27/19 05:13 BUN 11.5 mg/dL (7-18) 02/27/19 05:13 Creatinine 0.9 mg/dL (0.55-1.3) 02/27/19 05:13 Est GFR (CKD-EPI)AfAm 96.69 02/27/19 05:13 Est GFR (CKD-EPI)NonAf 83.42 02/27/19 05:13 Random Glucose 76 mg/dL (74-106) 02/27/19 05:13 Uric Acid 4.5 mg/dL (2.6-7.2) 02/22/19 13:08 Calcium 8.7 mg/dL (8.5-10.1) 02/27/19 05:13 Magnesium 6.2 mg/dL (1.8-2.4) H 02/23/19 17:00 Iron 46 ug/dL (50-175) L 02/26/19 05:30 TIBC 264 ug/dL (250-450) 02/26/19 05:30 Iron Saturation 17 % (17.5-39) L 02/26/19 05:30 Unsaturated IBC 218 ug/dL (200-275) 02/26/19 05:30 Ferritin 88.3 ng/ml (8-388) 02/26/19 05:30 Total Bilirubin 0.5 mg/dL (0.2-1) 02/27/19 05:13 AST 23 U/L (15-37) 02/27/19 05:13 ALT 39 U/L (13-61) 02/27/19 05:13 Alkaline Phosphatase 71 U/L (45-117) 02/27/19 05:13 LD Total 258 U/L (84-246) H 02/25/19 05:25 Total Protein 6.2 g/dl (6.4-8.2) L 02/27/19 05:13 Albumin 3.0 g/dl (3.4-5.0) L 02/27/19 05:13 CXR no acute pathology HOSPITAL COURSE: Date of Admission:02/22/19 33 year old female , 7 days post () with PMH significant for proteinuria in previous and prolactinoma in 2017. She was admitted for post pre-eclampsia after she was found to have a BP of 188 /100. Pt was loaded with Magnesium and started on labetolol 100 BID and labetol 10 PRN Q2H. Pt BP remained elevated thus we had to increased up tp 300 mg BID with 10mg PRN and hydralizine. As concerned for bradycardia in baby became apparent with dose,pt was switched to PO Hydralizine as needed and procardia standing. As BP stabilized pt was discharged with echo was unremarkable.There was a concern for HELLP syndrome but work up was negative.Pt was also found to be anemic but due to state pt is advise to follow as o/p. pt was discharged on blood pressure medication, BP cuffs and keflex for urine infection. Date of Discharge: 02/28/19 Minutes to complete discharge: 35 Discharge Summary Reason For Visit: PRE-ECLAMPSIA, Condition: Improved - Instructions Diet, Activity, Other Instructions: You were hospitalized and treated for severe hypertension called Pre-eclampsia -please take procardia daily and do not skip doses. - please check your blood pressure daily in am, and report log to your doctor. if pressure is > 160 take procardia and then call MD. if < 100 hold procardia and call your doctor . - Please follow up with Dr. Gallardo , the speech therapist early intervention in 1 week - follow with your PCP in 1 week - take keflex ( antibiotics) as prescribed for suspected UTI. urine cx is pending the results. after it results, if you need to change or stop the antibioptics then we will call you . - please stay hydrated. - follow with your product consultant in few days - consider treatment for anxiety if it continues. - report any bleeding, chest pain, fever , chills, and any other unusual symptoms to your doctors. - you can start breast feeding tomorrow - apply tuck pads and hydrocortisone cream to your hemorrhoids externally Good luck with the baby Referrals: Ramya Mendoza MD [Staff Physician] - (2-3 days ) Chioma Prescott MD [Staff Physician] - 1 Week Disposition: HOME - Home Medications Comprehensive Discharge Medication List: Ambulatory Orders Vitamins (Sjr) - 1 tab PO DAILY 02/15/19 Acetaminophen [Tylenol .Regular Strength -] 650 mg PO Q6H PRN tablet 02/27/19 Cephalexin [Keflex] 500 mg PO BID #5 capsule 02/27/19 Hydrocortisone 2.5% Topical Cr [Anusol-Hc -] 1 applic TP BID #1 tube 02/27/19 Ibuprofen [Motrin -] 600 mg PO TID PRN #90 tablet 02/27/19 Medical Supply, Miscellaneous [Blood Pressure Cuff] 1 each MC DAILY #1 each Nifedipine ER [Procardia XL -] 60 mg PO DAILY #30 tab.er.24 02/27/19 Witch Anna 50% (Tucks) [Tucks Witch Anna Pads] 1 pad NR DAILY #30 pad Problem List - Problems (1) Overweight Code(s): E66.3 - OVERWEIGHT (2) Preeclampsia in period Code(s): O14.95 - UNSPECIFIED PRE-ECLAMPSIA, COMPLICATING THE PUERPERIUM (3) UTI (urinary tract infection) Code(s): N39.0 - URINARY TRACT INFECTION, SITE NOT SPECIFIED This patient is new to me today: No Emergency Visit: Yes ED Registration Date: 02/22/19 Care time: The patient presented to the Emergency Department on the above date and was hospitalized for further evaluation of their emergent condition. Critical Care patient: Yes Total Critical Care Time (in minutes): 35 Critical Care Statement: The care of this patient involved high complexity decision making to prevent further life threatening deterioration of the patient 's condition and/or to evaluate & treat vital organ system(s) failure or risk of failure. - Discharge Referral Referred to [facility] No ATTENDING PHYSICIAN STATEMENT I saw and evaluated the patient. I reviewed the resident's note and discussed the case with the resident. I agree with the resident's findings and plan as documented. SUBJECTIVE: OBJECTIVE: ASSESSMENT AND PLAN:
== END 2019-02-27 20:02 | disposition home or self-care (01) | DRG 776 ==
LOC: JER 13:08 → JERBED 14:49 → JICU 20:22 → J2W 02-24 00:31
PROVIDERS: ADMIT Obstetrics & Gynecology; ATTEND Internal Medicine
DX: O14.95 Unspecified pre-eclampsia, complicating the puerperium (principal); O90.89 Other complications of the puerperium, not elsewhere classified; O99.215 Obesity complicating the puerperium; E66.8 Other obesity; O90.81 Anemia of the puerperium; O14.25 HELLP syndrome, complicating the puerperium; O99.345 Other mental disorders complicating the puerperium; F41.8 Other specified anxiety disorders
CPT/HCPCS: 36415; 71046-TC-FY; 80053; 81003; 82570; 82728; 83010; 83540; 83550; 83615; 83735; 84156; 84550; 85025; 85362; 85384; 85610; 85730; 87086; 93005; 93010; 93306-TC; 99284-25; J0131; J1644